=== PATIENT | female | born 1950 | race Caucasian/White ===

== ENCOUNTER 2016-05-14 07:01 | Inpatient (IN) | payer OTHER ==
[2016-05-14] VITALS (7 sets, daily range): BP systolic 131–161; BP diastolic 60–80
[~2016-05-14] VITALS: Ht 160 cm; Wt 93.0 kg
--- NOTE | ~2016-05-14 | O ---
[place], [place] OPERATIVE NOTE NAME: ANGELA HARRIS UNIT #: [id number] ROOM: 419 DOCTOR: CHELSEA FRANCIS MD BIRTHDATE: [birth year] DOS: 05/16/2016 GASTROENDOSCOPIC REPORT HISTORY OF PRESENT ILLNESS: The patient is a 66-year-old who has presented with chief complaint of epigastric abdominal pain, dyspepsia. Undergoing investigation. Consultation has been already dictated. Ultrasound of the liver has been reviewed. Hepatic , mild nodular contour suggesting of underlying cirrhosis, possible LEMA. CT scan of the abdomen also confirmatory of the above. Main organs are otherwise normal. Gallbladder is absent. PROCEDURE: Today's procedure part of investigation is panendoscopy plus biopsy. PREMEDICATION: Versed and Diprivan. SCOPE: Olympus forward-viewing gastroscope Q10 video. REPORT: After putting the patient in the left lateral position and application of lubricant to the scope, the scope was introduced. Thereafter, under direct visualization, I advanced through the length of the esophagus without difficulty. Esophagus, cervical and thoracic distally carefully examined. Gastric pouch was entered. Gastritis of mild degree was noticed. Antrum was biopsied. Duodenal bulb, second and third part patent, no pathology identified. GI reflection of the scope reveals cardia to be benign. Air was suctioned out. The patient extubated, tolerated procedure well. IMPRESSION: Gastritis. PLAN AND DISCUSSION: Omeprazole 20 mg 1 q. day would suffice. This patient most likely has suffered from viral gastroenteritis. Soft diet is going to be given and if stable, she is going to be followed as outpatient. Of notice is patient has been incidentally was found to have nodular liver, which is consistent with cirrhosis. Thank you very much indeed. Sincerely yours. [place], [place] OPERATIVE NOTE NAME: ANGELA HARRIS Jeovany UNIT #: [id number] ROOM: 419 DOCTOR: CHELSEA FRANCIS MD BIRTHDATE: [birth year] CHELSEA FRANCIS MD CM:OPRECORD:OPERATIVE NOTE 1122 1225 RUCHI BIRCH CCD MD CHELSEA FRANCIS MD 05/16/16 1225 interface
--- NOTE | ~2016-05-14 | CON ---
[place], [place] REPORT OF CONSULTATION [id number] UN[facility] #: [id number] ROOM: 419 DOCTOR: TITO GONZALESCHELSEA BIRTHDATE: [birth year] DOS: HISTORY OF PRESENT ILLNESS: This patient has presented with chief complaint of nausea, vomiting, epigastric distress, undergoing investigation. The patient has been hospitalized at this time. At the time of admission, her white blood cell was 7, H and H of 12 and 36. Lactic acid was 2.6. INR was 1.0. Comprehensive metabolic panel: BUN and creatinine normal. Electrolytes were balanced. Liver function test nearly normal. Myoglobin was 103. Lipase, alkaline phosphatase, C-reactive protein all within normal limits. Chest x-ray, no acute process. CT scan of the abdomen and pelvis was utilized. No acute process somewhat nodular contours of the liver suggest possible cirrhosis. Hemoglobin A1c was 8.6. H and H dropped to 10 and 31. Her comprehensive metabolic panel was readdressed with no acute changes otherwise. PAST MEDICAL HISTORY: Associated with nausea, vomiting, hypertension, obesity, gastritis, anxiety, abdominal distress, UTI. PAST SURGICAL HISTORY: Hysterectomy, appendectomy, cholecystectomy, basal cell resection, cardiac catheterization. SOCIAL HISTORY: Nonsmoker, nonalcohol consumer. FAMILY HISTORY: Noncontributory. ALLERGIES: CODEINE AND LEVOFLOXACIN. MEDICATIONS: List has been reviewed. REVIEW OF SYSTEMS: HEENT: Denies double vision, blurred vision. RESPIRATORY: Denies shortness of breath. CARDIOVASCULAR: Denies chest pain. DIGESTIVE SYSTEM: Nausea, vomiting. An episode of diarrhea. PHYSICAL EXAMINATION: VITAL SIGNS: Stable not acutely toxic. HEENT: Head: Normocephalic, nontraumatic. Mouth and buccal mucosa benign. NECK: Supple, no thyromegaly. CHEST: Symmetric anatomy, equal expansion. No wheeze, no rhonchi. HEART: Normal sinus rhythm, no gallop, no murmur. ABDOMEN: Obese, large, soft. No hepato-organomegaly. Bowel sounds present. EXTREMITIES: No cyanosis, no pedal edema. NEUROLOGIC: Alert, oriented to time, place and person. LABORATORY DATA: Reviewed. Records reviewed. Data reviewed. IMPRESSION: Nausea, vomiting associated with diarrhea, ruling out gastroenteritis. 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 PLAN AND DISCUSSION: We are going to organize an EGD. CHELSEA FRANCIS MD CM:CONSTR:REPORT OF CONSULTATION 0951 05/16/16 1324 interface
[~2016-05-14 07:01] MED LIST: 'TENORMIN50 MG PO; ACTOS30 MG PO; AMLODIPINE BESYL5 MG PO; ATARAX,VISTARIL50 MG PO; ATENOLOL25 MG PO; ATIVAN1 MG PO; BACTRIM DS 8001 TA1 PO; BACTRIM DS 8001 TAB PO; CARAFATE1 G1 PO; CARAFATE1 GM PO; CEFTIN250 MG PO; CEFUROXIME AXE250 MG PO; CELEXA10 MG PO; CELEXA40 MG PO; CLEOCIN150 MG PO; CLONAZEPAM2 MG PO; CORBAN MAGNESI400 MG PO; CRESTOR10 MG PO; DIABETA5 MG PO; EFFEXOR50 MG PO; FETZIMA PO; FIORICET 325 MG1 TAB PO; Fetzima PO; HUMALOG100 U/ML SC; INSULIN PUMP; INSULIN-HUMA100 U/ML SC; JANUVIA100 MG PO; K-DUR20 MEQ PO; KLONOPIN1 MG PO; KLONOPIN2 M1 PO; KLONOPIN2 MG PO; LAMICTAL100 MG PO; LAMICTAL25 MG; LANTUS SOLOS100 U/M1 SC; LANTUS100 U/ML SC; LASIX40 MG PO; LATU60TA PO; LEVAQUIN750 M1 PO; LEVOTHYROXIN0.112 MG PO; LISINOPRIL10 MG PO; MAALOX UD SUSP.30 ML PO; MACROBID100 M1 PO; METFORMIN1000 MG PO; METFORMIN500 MG PO; MIRALAX POWDER17 GM PO; MONISTAT 72% VG; NEURONTIN100 MG PO; NIFEREX PO; NORCO 325 MG-51 TAB PO; NOVOLIN 701 UNIT/0.0 SC; NOVOLIN R100 U/ML IJ; NOVOLOG 70/30 M10 ML SC; NOVOLOG1 UNIT/0.0; OYSTER SHELL CA1 T17 PO; PERCOCET 325 MG1 TA2 PO; PRAVACHOL10 MG PO; PRAVACHOL40 MG PO; PROTONIX40 MG PO; PYRIDIUM200 MG PO; REGLAN10 MG PO; RESTORIL15 MG PO; SEROQUEL100 MG PO; SEROQUEL400 M1 PO; SEROQUEL400 MG PO; SYNTHROID0.137 MG PO; TENORETIC 50 501 TAB PO; TENORMIN25 MG PO; TORADOL10 MG PO; TRAD5TAB1 PO; TRAMADOL HCL50 MG PO; VASOTEC2.5 MG PO; VASOTEC5 MG PO; VENLAFAXINE HYD50 MG PO; VICTOZA 3-PAK6 MG/ML SC; VISTARIL50 MG PO; VITAMIN D31000 IU PO; XANAX0.5 MG PO; XANAX1 MG PO; ZANAFLEX4 M1 PO; ZANAFLEX4 MG PO; ZANTAC150 MG PO; ZOCOR10 MG PO; ZOFRAN ODT4 MG SL
[2016-05-14 07:47] LABS: BASO % 0.5 % (0.0-1.0); EOS # 0.3 10*3/uL (0.0-0.4); EOS % 3.7 % (1.0-4.0); HEMATOCRIT 36.6 % (37.0-47.0); HEMOGLOBIN 12.1 g/dl (12.0-16.0); LYMPH # 1.9 10*3/uL (1.3-4.4); LYMPH % 25.9 % (27.0-41.0); MEAN CORPUSCULAR HGB 26.8 pg (27.0-31.0); MEAN CORPUSCULAR HGB CONC 33.1 g/dl (33.0-37.0); MONO # 0.6 10*3/uL (0.1-1.0); MONO % 8.2 % (3.0-9.0); NEUT # 4.5 10*3/uL (2.3-7.9); NEUT % 61.3 % (47.0-73.0); PLATELET COUNT AUTOMATED 172 10*3/uL (130-400); RED BLOOD COUNT 4.52 10*6/uL (4.10-5.10); RED CELL DISTRI WIDTH 13.9 % (0-14.5); WHITE BLOOD COUNT 7.3 10*3/uL (4.8-10.8)
[2016-05-14 07:56] LABS: INTERNATIONAL NORM RATIO 1.1 (2.0-3.5); PROTHROMBIN TIME 11.9 SECONDS (9.0-12.4)
[2016-05-14 08:05] LABS: ALKALINE PHOSPHATASE 94 U/L (45-117); BILIRUBIN, TOTAL 0.4 mg/dl (0.2-1.0); BUN 18 mg/dl (7-24); CARBON DIOXIDE 31 mmol/L (21-32); CHLORIDE 99 mmol/L (98-107); CKMB 2.1 ng/ml (0.5-3.6); CPK 137 U/L (26-192); EST GLOM FILT AFRICAN AMERICAN > 60 ml/min; GLUCOSE 198 mg/dL (65-99); MAGNESIUM 1.8 mg/dL (1.5-2.1); POTASSIUM 4.7 mmol/L (3.5-5.1); SGOT/AST 46 IU/L (3-35); SODIUM 138 mmol/L (136-145); TOTAL PROTEIN 8.1 gm/dL (6.4-8.2)
[2016-05-14 08:07] LABS: C-REACTIVE PROTEIN < 0.29 MG/DL (0-0.3); TROPONIN I < 0.015 ng/ml (<0.045)
[2016-05-14 08:09] LABS: SGPT/ALT 42 U/L (12-78)
[2016-05-14 09:44] LABS: LA>2 REFLEX 2 HR DRAW NOW
[2016-05-14 10:05] LABS: BILIRUBIN NEGATIVE (NEGATIVE); BLOOD NEGATIVE (NEGATIVE); CLARITY SL CLOUDY (CLEAR); COLOR YELLOW (YELLOW); GLUCOSE NEGATIVE (NEGATIVE); KETONE NEGATIVE (NEGATIVE); LEUKO ESTERASE NEGATIVE (NEGATIVE); NITRITE NEGATIVE (NEGATIVE); PH 5.5 (5.0-9.0); PROTEIN NEGATIVE (NEGATIVE); UROBILINOGEN 0.2 E.U./dl (0.2-1.0)
[2016-05-14 10:12] LABS: LA>2 RFLX FOLLOW UP AT 2 HRS 2.5 mmol/L (0.4-2.0)
[2016-05-14 10:36] LABS: BACTERIA TRACE
[2016-05-14 10:37] LABS: URINE REFLEX COMMENT NO (NO)
[2016-05-14 12:00] LABS: LA>2 REFLEX 4 HR DRAW NOW
[2016-05-15] VITALS: BP 139/58
[2016-05-15 06:43] LABS: BASO % 0.7 % (0.0-1.0); EOS # 0.2 10*3/uL (0.0-0.4); EOS % 4.7 % (1.0-4.0); HEMATOCRIT 31.5 % (37.0-47.0); LYMPH # 1.8 10*3/uL (1.3-4.4); LYMPH % 40.8 % (27.0-41.0); MEAN CELL VOLUME 82.9 fl (81.0-99.0); MEAN CORPUSCULAR HGB 26.3 pg (27.0-31.0); MEAN CORPUSCULAR HGB CONC 31.7 g/dl (33.0-37.0); MEAN PLATELET VOLUME 9.8 fl (9.6-12.3); MONO # 0.4 10*3/uL (0.1-1.0); MONO % 7.8 % (3.0-9.0); NEUT % 45.8 % (47.0-73.0); WHITE BLOOD COUNT 4.5 10*3/uL (4.8-10.8)
[2016-05-15 06:58] LABS: HEMOGLOBIN A1c 8.6 % (4.8-5.6)
[2016-05-15 07:01] LABS: ALBUMIN 3.4 gm/dl (3.1-4.5); ALKALINE PHOSPHATASE 84 U/L (45-117); BILIRUBIN, TOTAL 0.2 mg/dl (0.2-1.0); BUN 12 mg/dl (7-24); CARBON DIOXIDE 30 mmol/L (21-32); CHLORIDE 107 mmol/L (98-107); EST GLOM FILT AFRICAN AMERICAN > 60 ml/min; GLUCOSE 142 mg/dL (65-99); MAGNESIUM 1.7 mg/dL (1.5-2.1); PHOSPHOROUS 2.1 mg/dL (2.5-4.9); POTASSIUM 4.3 mmol/L (3.5-5.1); SGOT/AST 51 IU/L (3-35); SGPT/ALT 45 U/L (12-78); SODIUM 142 mmol/L (136-145); TOTAL PROTEIN 6.7 gm/dL (6.4-8.2)
[2016-05-15 07:08] LABS: PLATELET COUNT AUTOMATED 113 10*3/uL (130-400)
[2016-05-15 07:12] LABS: FOLIC ACID 7.66 ng/mL (>5.38); VITAMIN D, 25-HYDROXY 18.9 ng/mL (30-100)
[2016-05-15 07:39] LABS: CHOLESTEROL 74 mg/dL (<200)
[2016-05-15 07:40] LABS: HDL CHOLESTEROL 35 mg/dl (40-60); LDL CHOLESTEROL 4 mg/dL (9-159); TRIGLYCERIDES 177 mg/dl (<150); VLDL CHOLESTEROL 35 mg/dL (6-40)
[2016-05-15 08:00] VITALS: BP 96/66
[2016-05-15 12:00] VITALS: BP 110/55
[2016-05-15 16:00] VITALS: BP 127/81
[2016-05-15 20:00] VITALS: BP 153/84
[2016-05-16] VITALS (9 sets, daily range): BP systolic 106–161; BP diastolic 49–72
[2016-05-16 05:56] LABS: BASO % 0.8 % (0.0-1.0); EOS # 0.2 10*3/uL (0.0-0.4); HEMATOCRIT 28.9 % (37.0-47.0); HEMOGLOBIN 9.5 g/dl (12.0-16.0); LYMPH # 1.7 10*3/uL (1.3-4.4); LYMPH % 41.7 % (27.0-41.0); MEAN CORPUSCULAR HGB 26.6 pg (27.0-31.0); MEAN CORPUSCULAR HGB CONC 32.9 g/dl (33.0-37.0); MEAN PLATELET VOLUME 10.4 fl (9.6-12.3); MONO # 0.4 10*3/uL (0.1-1.0); MONO % 9.3 % (3.0-9.0); NEUT # 1.7 10*3/uL (2.3-7.9); NEUT % 42.7 % (47.0-73.0); PLATELET COUNT AUTOMATED 103 10*3/uL (130-400); RED BLOOD COUNT 3.57 10*6/uL (4.10-5.10)
[2016-05-16 05:57] LABS: ALKALINE PHOSPHATASE 72 U/L (45-117); BILIRUBIN, TOTAL 0.2 mg/dl (0.2-1.0); BUN 7 mg/dl (7-24); CARBON DIOXIDE 29 mmol/L (21-32); CHLORIDE 109 mmol/L (98-107); EST GLOM FILT AFRICAN AMERICAN > 60 ml/min; GLUCOSE 144 mg/dL (65-99); MAGNESIUM 1.7 mg/dL (1.5-2.1); PHOSPHOROUS 1.6 mg/dL (2.5-4.9); POTASSIUM 4.1 mmol/L (3.5-5.1); SGOT/AST 43 IU/L (3-35); SGPT/ALT 40 U/L (12-78); SODIUM 144 mmol/L (136-145)
[2016-05-17] VITALS: BP 147/64
[2016-05-17 08:00] VITALS: BP 153/58
[2016-05-17] MEDS ORDERED: OMEPRAZOLE D/R20 MG PO (11:16)
[2016-05-17] MEDS ORDERED: SEROQUEL400 M1 PO (11:16)
[2016-05-17] MEDS ORDERED: KLONOPIN2 M1 PO (11:16)
[2016-05-17] MEDS ORDERED: SEROQUEL100 MG PO (11:16)
== END 2016-05-17 13:15 | disposition home health service (06) | DRG 392 ==
LOC: ED 07:01 → EDHOLD 11:58 → 4E 11:58 → EDHOLD 12:13 → 4E 12:18
PROVIDERS: Emergency Medicine; Internal Medicine
PROC: 0DB68ZX Excision of Stomach, Via Natural or Artificial Opening Endoscopic, Diagnostic (ICD-10-PCS; principal; 2016-05-16)
DX: K29.70 Gastritis, unspecified, without bleeding (principal); E88.81 Metabolic syndrome and other insulin resistance; E44.0 Moderate protein-calorie malnutrition; R13.10 Dysphagia, unspecified; E83.39 Other disorders of phosphorus metabolism; K74.60 Unspecified cirrhosis of liver; E11.65 Type 2 diabetes mellitus with hyperglycemia; K52.9 Noninfective gastroenteritis and colitis, unspecified; I10 Essential (primary) hypertension; E86.0 Dehydration; E66.9 Obesity, unspecified; K76.0 Fatty (change of) liver, not elsewhere classified; E83.52 Hypercalcemia; F41.9 Anxiety disorder, unspecified; Z79.4 Long term (current) use of insulin; Z87.440 Personal history of urinary (tract) infections; Z90.710 Acquired absence of both cervix and uterus; Z90.49 Acquired absence of other specified parts of digestive tract; Z68.36 Body mass index [BMI] 36.0-36.9, adult; Z83.3 Family history of diabetes mellitus; Z80.1 Family history of malignant neoplasm of trachea, bronchus and lung; Z88.6 Allergy status to analgesic agent; Z88.1 Allergy status to other antibiotic agents; Z79.84 Long term (current) use of oral hypoglycemic drugs; Z79.899 Other long term (current) drug therapy

== ENCOUNTER 2016-08-20 10:59 | Inpatient (IN) | payer OTHER ==
[2016-08-20] VITALS (9 sets, daily range): BP systolic 152–195; BP diastolic 70–115
[~2016-08-20] VITALS: Ht 167.6 cm; Wt 96.4 kg
[~2016-08-20 10:59] MED LIST changes: +OMEPRAZOLE D/R20 MG PO
[2016-08-20 11:46] LABS: BASO # 0.1 10*3/uL (0.0-0.1); BASO % 0.7 % (0.0-1.0); EOS # 0.2 10*3/uL (0.0-0.4); EOS % 2.8 % (1.0-4.0); HEMATOCRIT 38.7 % (37.0-47.0); LYMPH # 1.4 10*3/uL (1.3-4.4); LYMPH % 20.4 % (27.0-41.0); MEAN CELL VOLUME 80.3 fl (81.0-99.0); MEAN CORPUSCULAR HGB CONC 33.6 g/dl (33.0-37.0); MEAN PLATELET VOLUME 10.3 fl (9.6-12.3); MONO # 0.6 10*3/uL (0.1-1.0); MONO % 9.3 % (3.0-9.0); NEUT # 4.5 10*3/uL (2.3-7.9); NEUT % 66.2 % (47.0-73.0); PLATELET COUNT AUTOMATED 195 10*3/uL (130-400); RED BLOOD COUNT 4.82 10*6/uL (4.10-5.10); RED CELL DISTRI WIDTH 14.6 % (0-14.5); WHITE BLOOD COUNT 6.8 10*3/uL (4.8-10.8)
[2016-08-20 11:53] LABS: PROTHROMBIN TIME 11.1 SECONDS (9.0-12.4)
[2016-08-20 12:00] LABS: ALBUMIN 4.3 gm/dl (3.1-4.5); BILIRUBIN, TOTAL 0.5 mg/dl (0.2-1.0); C-REACTIVE PROTEIN 1.46 MG/DL (0-0.3); CKMB 2.6 ng/ml (0.5-3.6); MAGNESIUM 1.9 mg/dL (1.5-2.1); POTASSIUM 4.8 mmol/L (3.5-5.1); TOTAL PROTEIN 8.7 gm/dL (6.4-8.2)
[2016-08-20 12:02] LABS: TROPONIN I 0.485 ng/ml (<0.045)
[2016-08-20 12:31] LABS: BILIRUBIN NEGATIVE (NEGATIVE); BLOOD TRACE-INTACT (NEGATIVE); CLARITY CLEAR (CLEAR); COLOR YELLOW (YELLOW); GLUCOSE 3+ (NEGATIVE); KETONE 2+ (NEGATIVE); LEUKO ESTERASE NEGATIVE (NEGATIVE); NITRITE NEGATIVE (NEGATIVE); PH 5.5 (5.0-9.0); PROTEIN 1+ (NEGATIVE); UROBILINOGEN 0.2 E.U./dl (0.2-1.0)
[2016-08-20 12:47] LABS: BACTERIA 1+; URINE REFLEX COMMENT YES (NO)
[2016-08-20 12:48] LABS: MUCOUS TRACE
[2016-08-20 13:42] LABS: LA>2 REFLEX 2 HR DRAW NOW
[2016-08-20 14:03] LABS: LA>2 RFLX FOLLOW UP AT 2 HRS 2.9 mmol/L (0.4-2.0)
[2016-08-20 15:57] LABS: LA>2 REFLEX 4 HR DRAW NOW
[2016-08-21] VITALS: BP 147/78
[2016-08-21 04:00] VITALS: BP 145/64
[2016-08-21 06:46] LABS: BASO % 0.5 % (0.0-1.0); EOS # 0.4 10*3/uL (0.0-0.4); EOS % 6.7 % (1.0-4.0); HEMATOCRIT 33.6 % (37.0-47.0); LYMPH # 1.5 10*3/uL (1.3-4.4); LYMPH % 27.2 % (27.0-41.0); MEAN CORPUSCULAR HGB 27.2 pg (27.0-31.0); MEAN CORPUSCULAR HGB CONC 32.7 g/dl (33.0-37.0); MONO # 0.5 10*3/uL (0.1-1.0); MONO % 9.6 % (3.0-9.0); NEUT # 3.1 10*3/uL (2.3-7.9); NEUT % 55.3 % (47.0-73.0); PLATELET COUNT AUTOMATED 159 10*3/uL (130-400); RED BLOOD COUNT 4.05 10*6/uL (4.10-5.10); WHITE BLOOD COUNT 5.5 10*3/uL (4.8-10.8)
[2016-08-21 07:00] LABS: ALBUMIN 3.5 gm/dl (3.1-4.5); ALKALINE PHOSPHATASE 97 U/L (45-117); BILIRUBIN, TOTAL 0.4 mg/dl (0.2-1.0); BUN 15 mg/dl (7-24); CARBON DIOXIDE 28 mmol/L (21-32); CHLORIDE 102 mmol/L (98-107); EST GLOM FILT AFRICAN AMERICAN > 60 ml/min; GLUCOSE 325 mg/dL (65-99); MAGNESIUM 1.8 mg/dL (1.5-2.1); PHOSPHOROUS 1.9 mg/dL (2.5-4.9); POTASSIUM 4.1 mmol/L (3.5-5.1); SGOT/AST 34 IU/L (3-35); SGPT/ALT 38 U/L (12-78); SODIUM 138 mmol/L (136-145); TOTAL PROTEIN 7.4 gm/dL (6.4-8.2)
[2016-08-21 08:00] VITALS: BP 160/88
[2016-08-21 12:00] VITALS: BP 162/82
[2016-08-21] MEDS ORDERED: VISTARIL50 MG PO (14:17)
[2016-08-21] MEDS ORDERED: KLONOPIN2 M1 PO (14:18)
[2016-08-21] MEDS ORDERED: NOVOLOG MI100 UNIT/2 SQ ×2 (14:19→14:20)
[2016-08-21 14:23] LABS: LA>2 REFLEX 2 HR DRAW NOW
[2016-08-21 14:53] LABS: LA>2 RFLX FOLLOW UP AT 2 HRS 2.7 mmol/L (0.4-2.0)
[2016-08-21 16:00] VITALS: BP 164/78
[2016-08-21 16:45] LABS: LA>2 REFLEX 4 HR DRAW NOW
[2016-08-21 20:00] VITALS: BP 145/74
[2016-08-22] VITALS: BP 122/68
[2016-08-22 06:25] LABS: BASO % 0.4 % (0.0-1.0); EOS # 0.4 10*3/uL (0.0-0.4); EOS % 8.8 % (1.0-4.0); HEMATOCRIT 28.9 % (37.0-47.0); HEMOGLOBIN 9.4 g/dl (12.0-16.0); LYMPH # 1.6 10*3/uL (1.3-4.4); LYMPH % 34.8 % (27.0-41.0); MEAN CELL VOLUME 83.5 fl (81.0-99.0); MEAN CORPUSCULAR HGB 27.2 pg (27.0-31.0); MEAN CORPUSCULAR HGB CONC 32.5 g/dl (33.0-37.0); MEAN PLATELET VOLUME 10.2 fl (9.6-12.3); MONO # 0.5 10*3/uL (0.1-1.0); MONO % 10.1 % (3.0-9.0); NEUT # 2.1 10*3/uL (2.3-7.9); NEUT % 45.5 % (47.0-73.0); PLATELET COUNT AUTOMATED 130 10*3/uL (130-400); RED BLOOD COUNT 3.46 10*6/uL (4.10-5.10); WHITE BLOOD COUNT 4.6 10*3/uL (4.8-10.8)
[2016-08-22 07:01] LABS: ALBUMIN 2.9 gm/dl (3.1-4.5); ALKALINE PHOSPHATASE 83 U/L (45-117); BILIRUBIN, TOTAL 0.3 mg/dl (0.2-1.0); BUN 11 mg/dl (7-24); CARBON DIOXIDE 29 mmol/L (21-32); CHLORIDE 103 mmol/L (98-107); EST GLOM FILT AFRICAN AMERICAN > 60 ml/min; GLUCOSE 217 mg/dL (65-99); POTASSIUM 3.9 mmol/L (3.5-5.1); SGOT/AST 26 IU/L (3-35); SGPT/ALT 36 U/L (12-78); SODIUM 139 mmol/L (136-145); TOTAL PROTEIN 6.3 gm/dL (6.4-8.2)
[2016-08-22 08:00] VITALS: BP 142/54
[2016-08-22] MEDS ORDERED: LEVEMIR10 ML SC (11:56)
[2016-08-22 12:00] VITALS: BP 138/65
[2016-08-22 12:32] LABS: LA>2 REFLEX 2 HR DRAW NOW
[2016-08-22 13:15] LABS: LA>2 RFLX FOLLOW UP AT 2 HRS 2.8 mmol/L (0.4-2.0)
[2016-08-22 15:09] LABS: LA>2 REFLEX 4 HR DRAW NOW
== END 2016-08-22 14:10 | disposition home or self-care (01) | DRG 871 ==
LOC: ED 10:59 → 5E 13:30 → EDHOLD 13:30 → 5E 13:42
PROVIDERS: Emergency Medicine; Family Medicine; Hospitalist; Internal Medicine Nephrology
DX: A41.9 Sepsis, unspecified organism (principal); N17.0 Acute kidney failure with tubular necrosis; G93.41 Metabolic encephalopathy; I16.1 Hypertensive emergency; R65.20 Severe sepsis without septic shock; E11.65 Type 2 diabetes mellitus with hyperglycemia; Z79.4 Long term (current) use of insulin; K74.60 Unspecified cirrhosis of liver; K76.0 Fatty (change of) liver, not elsewhere classified; K52.9 Noninfective gastroenteritis and colitis, unspecified; G24.01 Drug induced subacute dyskinesia; E66.9 Obesity, unspecified; Z85.828 Personal history of other malignant neoplasm of skin; F41.1 Generalized anxiety disorder; F32.9 Major depressive disorder, single episode, unspecified; Z90.49 Acquired absence of other specified parts of digestive tract; Z80.1 Family history of malignant neoplasm of trachea, bronchus and lung; Z68.39 Body mass index [BMI] 39.0-39.9, adult; Z88.5 Allergy status to narcotic agent; Z88.1 Allergy status to other antibiotic agents; R82.4 Acetonuria; D72.810 Lymphocytopenia; I10 Essential (primary) hypertension; Z83.3 Family history of diabetes mellitus

== ENCOUNTER 2016-08-30 08:37 | Inpatient (IN) | payer OTHER ==
[~2016-08-30] VITALS: Ht 165.1 cm; Wt 94.4 kg
--- NOTE | ~2016-08-30 | CON ---
[place], [place] REPORT OF CONSULTATION NAME: ANGELA HARRIS UNIT #: [id number] ROOM: [place] [address] DOCTOR: OLIVERIO BRAR MD BIRTHDATE: [birth year] DOS: 08/31/2016 PSYCHIATRIC CONSULT. CHIEF COMPLAINT: The patient was nonverbal. HISTORY OF PRESENT ILLNESS: This is a 66-year-old female who was admitted to [facility] due to nausea, vomiting, diarrhea and chills. The patient has been now running a temperature of over 104 and has been very somnolent. When I attempted to interview her, she was very sedate and somnolent and not able to engage readily in conversation. PAST MEDICAL HISTORY: Suggest a history of major depression, obesity, insulin-dependent diabetes, generalized anxiety disorder, hypertension, basal cell carcinoma. MENTAL STATUS: Limited due to her somnolent state. There was no agitation or aggression. No mood lability, no overt psychosis noted. DIAGNOSIS: Bipolar type 2. PLAN: She is on Seroquel 500 mg at bedtime. I will go ahead and lower this to 100 mg at bedtime. She is also on Klonopin 2 mg at bedtime. I will lower this to 1 mg at bedtime. These doses can be adjusted back up as she becomes more alert and oriented. There are other alternatives to the Seroquel, for example, Latuda will give you sedation without the somnolence that Seroquel often causes. Should she require further adjustment, please re-notify me and I will reevaluate her later in her hospital stay. OLIVERIO BRAR MD CM:CONSTR:REPORT OF CONSULTATION 0918 08/31/16 2330 interface
[~2016-08-30 08:37] MED LIST changes: +LEVEMIR10 ML SC; +NOVOLOG MI100 UNIT/2 SQ
[2016-08-30 08:54] VITALS: BP 181/80
[2016-08-30 09:09] LABS: BASO % 0.6 % (0.0-1.0); EOS # 0.3 10*3/uL (0.0-0.4); EOS % 6.1 % (1.0-4.0); HEMATOCRIT 37.9 % (37.0-47.0); HEMOGLOBIN 12.3 g/dl (12.0-16.0); LYMPH # 1.4 10*3/uL (1.3-4.4); LYMPH % 28.5 % (27.0-41.0); MEAN CELL VOLUME 81.5 fl (81.0-99.0); MEAN CORPUSCULAR HGB 26.5 pg (27.0-31.0); MEAN CORPUSCULAR HGB CONC 32.5 g/dl (33.0-37.0); MEAN PLATELET VOLUME 9.9 fl (9.6-12.3); MONO # 0.4 10*3/uL (0.1-1.0); MONO % 8.5 % (3.0-9.0); NEUT # 2.8 10*3/uL (2.3-7.9); NEUT % 55.7 % (47.0-73.0); PLATELET COUNT AUTOMATED 173 10*3/uL (130-400); RED BLOOD COUNT 4.65 10*6/uL (4.10-5.10); RED CELL DISTRI WIDTH 15.2 % (0-14.5); WHITE BLOOD COUNT 4.9 10*3/uL (4.8-10.8)
[2016-08-30 09:23] LABS: ALBUMIN 3.7 gm/dl (3.1-4.5); BILIRUBIN, TOTAL 0.6 mg/dl (0.2-1.0); POTASSIUM 4.5 mmol/L (3.5-5.1); TOTAL PROTEIN 7.7 gm/dL (6.4-8.2)
[2016-08-30 10:00] VITALS: BP 137/80
[2016-08-30 10:35] LABS: BILIRUBIN NEGATIVE (NEGATIVE); BLOOD NEGATIVE (NEGATIVE); CLARITY SL CLOUDY (CLEAR); COLOR YELLOW (YELLOW); GLUCOSE 3+ (NEGATIVE); KETONE TRACE (NEGATIVE); LEUKO ESTERASE NEGATIVE (NEGATIVE); NITRITE NEGATIVE (NEGATIVE); PH 5.5 (5.0-9.0); PROTEIN 1+ (NEGATIVE); UROBILINOGEN 0.2 E.U./dl (0.2-1.0)
[2016-08-30 10:49] LABS: BACTERIA 1+; FINE GRANULAR CAST 20-30; HYALINE CAST 15-20; MUCOUS 1+; RED BLOOD CELL CAST 0-2
[2016-08-30 11:44] VITALS: BP 185/71
[2016-08-30 14:42] VITALS: BP 157/74
[2016-08-30] MEDS ORDERED: METFORMIN HCL1000 MG PO (15:41)
[2016-08-30] MEDS ORDERED: FOSAMAX70 M1 PO (15:42)
[2016-08-30] MEDS ORDERED: VISTARIL50 MG PO (15:42)
[2016-08-30 16:00] VITALS: BP 156/88
[2016-08-30 20:00] VITALS: BP 144/58
[2016-08-31] VITALS: BP 143/60; BP 82/35
[2016-08-31 00:39] LABS: ABG BASE EXCESS 0.7 mmol/L (-2.0-2.0); ABG CO2 CONTENT 27.3 mmol/L (23-27); ABG HCO3 25.8 mmol/l (22-26); ABG TEMPERATURE 97.8 F (98.0-99.0); ARTERIAL BLOOD GAS PH 7.37 (7.35-7.45); ARTERIAL BLOOD GAS PO2 86.4 mmHg (80-90)
[2016-08-31 01:00] VITALS: BP 152/82
[2016-08-31 03:04] LABS: BASO % 0.4 % (0.0-1.0); EOS # 0.2 10*3/uL (0.0-0.4); EOS % 4.1 % (1.0-4.0); HEMOGLOBIN 10.8 g/dl (12.0-16.0); LYMPH # 1.6 10*3/uL (1.3-4.4); LYMPH % 31.3 % (27.0-41.0); MEAN CELL VOLUME 81.9 fl (81.0-99.0); MEAN CORPUSCULAR HGB 26.8 pg (27.0-31.0); MEAN CORPUSCULAR HGB CONC 32.7 g/dl (33.0-37.0); MEAN PLATELET VOLUME 9.8 fl (9.6-12.3); MONO # 0.6 10*3/uL (0.1-1.0); MONO % 10.6 % (3.0-9.0); NEUT # 2.8 10*3/uL (2.3-7.9); NEUT % 53.4 % (47.0-73.0); PLATELET COUNT AUTOMATED 144 10*3/uL (130-400); RED BLOOD COUNT 4.03 10*6/uL (4.10-5.10); RED CELL DISTRI WIDTH 15.1 % (0-14.5); WHITE BLOOD COUNT 5.2 10*3/uL (4.8-10.8)
[2016-08-31 03:23] LABS: ALBUMIN 3.4 gm/dl (3.1-4.5); ALKALINE PHOSPHATASE 84 U/L (45-117); BUN 11 mg/dl (7-24); CARBON DIOXIDE 28 mmol/L (21-32); CHLORIDE 103 mmol/L (98-107); EST GLOM FILT AFRICAN AMERICAN > 60 ml/min; GLUCOSE 95 mg/dL (65-99); MAGNESIUM 1.3 mg/dL (1.5-2.1); PHOSPHOROUS 1.7 mg/dL (2.5-4.9); POTASSIUM 4.1 mmol/L (3.5-5.1); SGOT/AST 41 IU/L (3-35); SGPT/ALT 42 U/L (12-78); SODIUM 139 mmol/L (136-145)
[2016-08-31 03:25] LABS: BILIRUBIN, TOTAL 0.3 mg/dl (0.2-1.0)
[2016-08-31 04:00] VITALS: BP 187/85
[2016-08-31 08:00] VITALS: BP 160/89
[2016-08-31 11:40] VITALS: BP 191/86
[2016-08-31 13:00] VITALS: BP 236/96
[2016-08-31 13:16] LABS: URINE AMPHETAMINES < 1000 (1000ng/ml); URINE BARBITURATES < 200 (200ng/ml); URINE COCAINE < 300 (300ng/ml)
== END 2016-08-31 13:34 | disposition short-term general hospital (02) | DRG 871 ==
LOC: ED 08:37 → EDHOLD 11:40 → 5E 11:47 → ICCU 08-31 00:45
PROVIDERS: Emergency Medicine; Internal Medicine; Internal Medicine Hospice and Palliative Medicine; Internal Medicine Infectious Disease
DX: A41.9 Sepsis, unspecified organism (principal); N17.0 Acute kidney failure with tubular necrosis; G92 Toxic encephalopathy; G03.9 Meningitis, unspecified; E87.1 Hypo-osmolality and hyponatremia; F31.81 Bipolar II disorder; K76.0 Fatty (change of) liver, not elsewhere classified; F41.1 Generalized anxiety disorder; I10 Essential (primary) hypertension; C44.91 Basal cell carcinoma of skin, unspecified; E66.9 Obesity, unspecified; R19.7 Diarrhea, unspecified; E11.65 Type 2 diabetes mellitus with hyperglycemia; E83.52 Hypercalcemia; Z91.14 Patient's other noncompliance with medication regimen; Z88.1 Allergy status to other antibiotic agents; Z88.5 Allergy status to narcotic agent; Z79.4 Long term (current) use of insulin; Z68.34 Body mass index [BMI] 34.0-34.9, adult; Z79.899 Other long term (current) drug therapy; Z90.710 Acquired absence of both cervix and uterus; Z90.49 Acquired absence of other specified parts of digestive tract; Z82.49 Family history of ischemic heart disease and other diseases of the circulatory system; Z83.3 Family history of diabetes mellitus; Z80.1 Family history of malignant neoplasm of trachea, bronchus and lung; Z79.84 Long term (current) use of oral hypoglycemic drugs

== ENCOUNTER 2016-09-21 14:33 | Inpatient (IN) | payer OTHER ==
[~2016-09-21] VITALS: Ht 165.1 cm; Wt 95.3 kg
--- NOTE | ~2016-09-21 | CON ---
[place], [place] REPORT OF CONSULTATION NAME[id number] UNIT #: [id number] ROOM: 408 DOCTOR: TITO GONZALESCHELSEA BIRTHDATE: [birth year] DOS: 09/21/2016 HISTORY OF PRESENT ILLNESS: A 66-year-old who has presented with guaiac positivity and anemia to the Emergency Room. The patient is known to our service because of the past endoscopies with findings of gastritis and episodes of nausea, vomiting, diarrhea and has been under investigation periodically for a variety of complaints. PAST MEDICAL HISTORY: Associated with LEMA (nonalcoholic fatty steatosis) of the liver, obesity, unsteady gait, anxiety, hypertension, basal cell CA of skin, cirrhosis, essential hypertension, diabetes mellitus. PAST SURGICAL HISTORY: Hysterectomy, appendectomy, colonoscopy in 2006, basal cell resection, cardiac catheterization, EGDs. SOCIAL HISTORY: Nonsmoker, nonalcohol consumer. FAMILY HISTORY: Noncontributory. ALLERGIES: CODEINE AND LEVOFLOXACIN. MEDICATIONS: List has been reviewed. She has not been on anti-platelets or anticoagulants. REVIEW OF SYSTEMS: HEENT: Denies double vision, blurry vision. RESPIRATORY: Denies shortness of breath. CARDIOVASCULAR: Denies chest pain. DIGESTIVE SYSTEM: Guaiac positive. Anemia. Gastritis history. PHYSICAL EXAMINATION: GENERAL: Morbidly obese patient. The patient appears to be comfortable. HEENT: Head normocephalic, nontraumatic. Mouth and buccal mucosa benign. NECK: Supple, no thyromegaly, no cervical lymphadenopathy. CHEST: Symmetric anatomy, equal expansion. No wheeze, no rhonchi. HEART: Normal sinus rhythm, no gallop, no murmur. ABDOMEN: Obese, large, soft. No hepato-organomegaly. Bowel sounds present. EXTREMITIES: No cyanosis, no pedal edema. NEUROLOGIC: Alert, oriented to time, place and person. IMPRESSION: Anemia, renal insufficiency, hypertension, obesity, gastritis, guaiac positive per Emergency Room, nonalcoholic fatty steatosis of the liver. Apparently there has been difficulty with starting of IV. She is not comfortable in receiving another IV restart. She had chest x-ray reviewed; blunting of the costovertebral angle, bilateral pleural effusion noticed. Comprehensive metabolic panel, BUN and creatinine now normal. Severe hypokalemia of potassium of 2.4 has been addressed. Liver function tests and troponin have been normal. INR 1.0, PT/PTT within normal limits. CBC differential, white blood cell 4.9, H and H of 8 and 26 appreciated, platelets [place], [place] REPORT OF CONSULTATION NAME: ANGELA HARRIS UNIT #: [id number] ROOM: 408 DOCTOR: CHELSEA FRANCIS MD BIRTHDATE: [birth year] of 136 identified. PLAN AND DISCUSSION: We are going to observe her H and H for the next 2-3 days, potassium supplementation and if there is a drop in H and H, then we will organize a colonoscopy. She has already had an EGD with finding of gastritis. CHELSEA FRANCIS MD CM:CONSTR:REPORT OF CONSULTATION 1806 09/22/16 0009 interface
[~2016-09-21 14:33] MED LIST changes: +FOSAMAX70 M1 PO; -LISINOPRIL10 MG PO; +LISINOPRIL40 MG PO; +METFORMIN HCL1000 MG PO
[2016-09-21 14:43] VITALS: BP 167/73
[2016-09-21 15:30] LABS: BASO % 0.2 % (0.0-1.0); EOS # 0.1 10*3/uL (0.0-0.4); EOS % 1.4 % (1.0-4.0); HEMATOCRIT 26.4 % (37.0-47.0); HEMOGLOBIN 8.1 g/dl (12.0-16.0); LYMPH % 21.1 % (27.0-41.0); MEAN CELL VOLUME 87.4 fl (81.0-99.0); MEAN CORPUSCULAR HGB 26.8 pg (27.0-31.0); MEAN CORPUSCULAR HGB CONC 30.7 g/dl (33.0-37.0); MEAN PLATELET VOLUME 10.7 fl (9.6-12.3); MONO # 0.5 10*3/uL (0.1-1.0); MONO % 9.5 % (3.0-9.0); NEUT # 3.3 10*3/uL (2.3-7.9); NEUT % 67.2 % (47.0-73.0); PLATELET COUNT AUTOMATED 136 10*3/uL (130-400); RED BLOOD COUNT 3.02 10*6/uL (4.10-5.10); RED CELL DISTRI WIDTH 17.1 % (0-14.5); WHITE BLOOD COUNT 4.9 10*3/uL (4.8-10.8)
[2016-09-21 15:48] LABS: ALBUMIN 2.9 gm/dl (3.1-4.5); ALKALINE PHOSPHATASE 105 U/L (45-117); BILIRUBIN, TOTAL 0.3 mg/dl (0.2-1.0); BUN 8 mg/dl (7-24); CARBON DIOXIDE 29 mmol/L (21-32); CHLORIDE 103 mmol/L (98-107); EST GLOM FILT AFRICAN AMERICAN > 60 ml/min; GLUCOSE 188 mg/dL (65-99); MAGNESIUM 1.4 mg/dL (1.5-2.1); SGOT/AST 18 IU/L (3-35); SGPT/ALT 19 U/L (12-78); SODIUM 140 mmol/L (136-145); TOTAL PROTEIN 6.5 gm/dL (6.4-8.2)
[2016-09-21 15:51] LABS: POTASSIUM 2.4 mmol/L (3.5-5.1)
[2016-09-21 16:36] VITALS: BP 154/76
[2016-09-21] MEDS ORDERED: SEROQUEL200 MG PO (18:37)
[2016-09-21] MEDS ORDERED: CLONIDINE0.2 MG PO (18:43)
[2016-09-21] MEDS ORDERED: NOVOLOG10 ML SC (18:47)
[2016-09-21 20:00] VITALS: BP 178/87
[2016-09-22] VITALS (13 sets, daily range): BP systolic 126–206; BP diastolic 50–96
[2016-09-22 05:52] LABS: BASO % 0.2 % (0.0-1.0); EOS # 0.1 10*3/uL (0.0-0.4); EOS % 1.6 % (1.0-4.0); HEMATOCRIT 28.6 % (37.0-47.0); HEMOGLOBIN 9.2 g/dl (12.0-16.0); LYMPH # 1.6 10*3/uL (1.3-4.4); LYMPH % 28.7 % (27.0-41.0); MEAN CELL VOLUME 86.9 fl (81.0-99.0); MEAN CORPUSCULAR HGB CONC 32.2 g/dl (33.0-37.0); MONO # 0.5 10*3/uL (0.1-1.0); MONO % 9.6 % (3.0-9.0); NEUT # 3.3 10*3/uL (2.3-7.9); NEUT % 59.5 % (47.0-73.0); PLATELET COUNT AUTOMATED 132 10*3/uL (130-400); RED BLOOD COUNT 3.29 10*6/uL (4.10-5.10); RED CELL DISTRI WIDTH 16.4 % (0-14.5); WHITE BLOOD COUNT 5.6 10*3/uL (4.8-10.8)
[2016-09-22 06:09] LABS: ALBUMIN 2.9 gm/dl (3.1-4.5); ALKALINE PHOSPHATASE 105 U/L (45-117); BILIRUBIN, TOTAL 1.6 mg/dl (0.2-1.0); BUN 8 mg/dl (7-24); CARBON DIOXIDE 28 mmol/L (21-32); CHLORIDE 102 mmol/L (98-107); EST GLOM FILT AFRICAN AMERICAN > 60 ml/min; GLUCOSE 161 mg/dL (65-99); MAGNESIUM 1.3 mg/dL (1.5-2.1); PHOSPHOROUS 1.6 mg/dL (2.5-4.9); POTASSIUM 3.1 mmol/L (3.5-5.1); SGOT/AST 18 IU/L (3-35); SGPT/ALT 18 U/L (12-78); SODIUM 139 mmol/L (136-145); TOTAL PROTEIN 6.6 gm/dL (6.4-8.2)
[2016-09-22 06:29] LABS: PROTHROMBIN TIME 10.9 SECONDS (9.0-12.4)
[2016-09-23] VITALS: BP 164/60
[2016-09-23 06:08] LABS: BASO % 0.4 % (0.0-1.0); EOS # 0.2 10*3/uL (0.0-0.4); EOS % 3.4 % (1.0-4.0); HEMATOCRIT 28.8 % (37.0-47.0); HEMOGLOBIN 9.1 g/dl (12.0-16.0); LYMPH # 1.4 10*3/uL (1.3-4.4); LYMPH % 29.6 % (27.0-41.0); MEAN CORPUSCULAR HGB 27.5 pg (27.0-31.0); MEAN CORPUSCULAR HGB CONC 31.6 g/dl (33.0-37.0); MEAN PLATELET VOLUME 11.7 fl (9.6-12.3); MONO # 0.5 10*3/uL (0.1-1.0); MONO % 9.9 % (3.0-9.0); NEUT # 2.7 10*3/uL (2.3-7.9); NEUT % 56.1 % (47.0-73.0); PLATELET COUNT AUTOMATED 114 10*3/uL (130-400); RED BLOOD COUNT 3.31 10*6/uL (4.10-5.10); WHITE BLOOD COUNT 4.7 10*3/uL (4.8-10.8)
[2016-09-23 06:26] LABS: ALBUMIN 2.9 gm/dl (3.1-4.5); BUN 7 mg/dl (7-24); CARBON DIOXIDE 28 mmol/L (21-32); CHLORIDE 103 mmol/L (98-107); EST GLOM FILT AFRICAN AMERICAN > 60 ml/min; GLUCOSE 290 mg/dL (65-99); MAGNESIUM 1.4 mg/dL (1.5-2.1); PHOSPHOROUS 2.4 mg/dL (2.5-4.9); POTASSIUM 2.9 mmol/L (3.5-5.1); SGOT/AST 17 IU/L (3-35); SGPT/ALT 17 U/L (12-78); SODIUM 140 mmol/L (136-145); TOTAL PROTEIN 6.5 gm/dL (6.4-8.2)
[2016-09-23 06:28] LABS: ALKALINE PHOSPHATASE 101 U/L (45-117); BILIRUBIN, TOTAL 0.5 mg/dl (0.2-1.0)
[2016-09-23 08:00] VITALS: BP 172/70
[2016-09-23 12:00] VITALS: BP 152/57
[2016-09-23 16:00] VITALS: BP 143/76
[2016-09-23 20:00] VITALS: BP 154/62
[2016-09-24] VITALS: BP 116/55
[2016-09-24 06:49] LABS: BASO % 0.5 % (0.0-1.0); EOS # 0.2 10*3/uL (0.0-0.4); EOS % 4.1 % (1.0-4.0); HEMOGLOBIN 9.1 g/dl (12.0-16.0); LYMPH # 1.1 10*3/uL (1.3-4.4); LYMPH % 24.5 % (27.0-41.0); MEAN CELL VOLUME 88.4 fl (81.0-99.0); MEAN CORPUSCULAR HGB 27.7 pg (27.0-31.0); MEAN CORPUSCULAR HGB CONC 31.4 g/dl (33.0-37.0); MEAN PLATELET VOLUME 11.8 fl (9.6-12.3); MONO # 0.4 10*3/uL (0.1-1.0); NEUT # 2.7 10*3/uL (2.3-7.9); NEUT % 60.2 % (47.0-73.0); PLATELET COUNT AUTOMATED 105 10*3/uL (130-400); RED BLOOD COUNT 3.28 10*6/uL (4.10-5.10); RED CELL DISTRI WIDTH 17.2 % (0-14.5); WHITE BLOOD COUNT 4.4 10*3/uL (4.8-10.8)
[2016-09-24 06:57] LABS: ALKALINE PHOSPHATASE 106 U/L (45-117); BILIRUBIN, TOTAL 0.5 mg/dl (0.2-1.0); BUN 6 mg/dl (7-24); CARBON DIOXIDE 29 mmol/L (21-32); CHLORIDE 100 mmol/L (98-107); EST GLOM FILT AFRICAN AMERICAN > 60 ml/min; GLUCOSE 231 mg/dL (65-99); MAGNESIUM 1.6 mg/dL (1.5-2.1); POTASSIUM 3.5 mmol/L (3.5-5.1); SGOT/AST 15 IU/L (3-35); SGPT/ALT 15 U/L (12-78); SODIUM 137 mmol/L (136-145); TOTAL PROTEIN 6.4 gm/dL (6.4-8.2)
[2016-09-24 08:00] VITALS: BP 131/64
[2016-09-24 12:00] VITALS: BP 120/53
[2016-09-24 16:00] VITALS: BP 142/54
[2016-09-24 20:00] VITALS: BP 126/65; BP 142/54
[2016-09-25] VITALS: BP 136/50
[2016-09-25 04:00] VITALS: BP 136/50
[2016-09-25 06:21] LABS: BASO % 0.3 % (0.0-1.0); EOS # 0.2 10*3/uL (0.0-0.4); EOS % 4.3 % (1.0-4.0); HEMATOCRIT 28.8 % (37.0-47.0); HEMOGLOBIN 9.2 g/dl (12.0-16.0); LYMPH % 25.4 % (27.0-41.0); MEAN CELL VOLUME 87.8 fl (81.0-99.0); MEAN CORPUSCULAR HGB CONC 31.9 g/dl (33.0-37.0); MEAN PLATELET VOLUME 11.5 fl (9.6-12.3); MONO # 0.5 10*3/uL (0.1-1.0); MONO % 11.5 % (3.0-9.0); NEUT # 2.3 10*3/uL (2.3-7.9); NEUT % 58.2 % (47.0-73.0); PLATELET COUNT AUTOMATED 98 10*3/uL (130-400); RED BLOOD COUNT 3.28 10*6/uL (4.10-5.10); RED CELL DISTRI WIDTH 16.8 % (0-14.5); WHITE BLOOD COUNT 3.9 10*3/uL (4.8-10.8)
[2016-09-25 06:50] LABS: ALBUMIN 2.8 gm/dl (3.1-4.5); BUN 7 mg/dl (7-24); CARBON DIOXIDE 30 mmol/L (21-32); CHLORIDE 101 mmol/L (98-107); EST GLOM FILT AFRICAN AMERICAN > 60 ml/min; GLUCOSE 257 mg/dL (65-99); MAGNESIUM 1.3 mg/dL (1.5-2.1); PHOSPHOROUS 2.7 mg/dL (2.5-4.9); POTASSIUM 3.6 mmol/L (3.5-5.1); SGOT/AST 16 IU/L (3-35); SGPT/ALT 15 U/L (12-78); SODIUM 138 mmol/L (136-145)
[2016-09-25 06:52] LABS: ALKALINE PHOSPHATASE 97 U/L (45-117); BILIRUBIN, TOTAL 0.4 mg/dl (0.2-1.0); TOTAL PROTEIN 6.4 gm/dL (6.4-8.2)
[2016-09-25 08:00] VITALS: BP 149/58
[2016-09-25 12:00] VITALS: BP 134/53
[2016-09-25] MEDS ORDERED: NOVOLIN 70100 UNIT/1 SQ (12:17)
[2016-09-25] MEDS ORDERED: AMLODIPINE BESY10 MG PO (12:31)
[2016-09-25] MEDS ORDERED: DUONEB 3 MG/3 ML3 M1 INH (12:34)
[2016-09-25 16:00] VITALS: BP 138/55
[2016-09-25 20:00] VITALS: BP 154/56
[2016-09-26] VITALS: BP 119/49; BP 128/55
[2016-09-26 06:46] LABS: BASO % 0.3 % (0.0-1.0); EOS # 0.1 10*3/uL (0.0-0.4); HEMATOCRIT 27.9 % (37.0-47.0); HEMOGLOBIN 8.8 g/dl (12.0-16.0); LYMPH % 26.9 % (27.0-41.0); MEAN CELL VOLUME 88.6 fl (81.0-99.0); MEAN CORPUSCULAR HGB 27.9 pg (27.0-31.0); MEAN CORPUSCULAR HGB CONC 31.5 g/dl (33.0-37.0); MEAN PLATELET VOLUME 11.4 fl (9.6-12.3); MONO # 0.4 10*3/uL (0.1-1.0); MONO % 10.7 % (3.0-9.0); NEUT # 2.1 10*3/uL (2.3-7.9); NEUT % 58.8 % (47.0-73.0); PLATELET COUNT AUTOMATED 92 10*3/uL (130-400); RED BLOOD COUNT 3.15 10*6/uL (4.10-5.10); RED CELL DISTRI WIDTH 16.9 % (0-14.5); WHITE BLOOD COUNT 3.6 10*3/uL (4.8-10.8)
[2016-09-26 07:09] LABS: BUN 7 mg/dl (7-24); CARBON DIOXIDE 31 mmol/L (21-32); CHLORIDE 100 mmol/L (98-107); EST GLOM FILT AFRICAN AMERICAN > 60 ml/min; GLUCOSE 237 mg/dL (65-99); MAGNESIUM 1.5 mg/dL (1.5-2.1); POTASSIUM 3.5 mmol/L (3.5-5.1); SODIUM 138 mmol/L (136-145)
[2016-09-26 08:00] VITALS: BP 152/66
[2016-09-26 12:00] VITALS: BP 138/53
[2016-09-26 16:00] VITALS: BP 136/60
[2016-09-26 20:00] VITALS: BP 153/75
[2016-09-27] VITALS: BP 143/62
[2016-09-27 06:10] LABS: BASO % 0.3 % (0.0-1.0); EOS # 0.1 10*3/uL (0.0-0.4); EOS % 4.3 % (1.0-4.0); HEMATOCRIT 28.9 % (37.0-47.0); LYMPH # 1.2 10*3/uL (1.3-4.4); LYMPH % 38.8 % (27.0-41.0); MEAN CELL VOLUME 88.4 fl (81.0-99.0); MEAN CORPUSCULAR HGB 27.5 pg (27.0-31.0); MEAN CORPUSCULAR HGB CONC 31.1 g/dl (33.0-37.0); MEAN PLATELET VOLUME 11.8 fl (9.6-12.3); MONO # 0.4 10*3/uL (0.1-1.0); MONO % 11.7 % (3.0-9.0); NEUT # 1.3 10*3/uL (2.3-7.9); NEUT % 44.6 % (47.0-73.0); PLATELET COUNT AUTOMATED 87 10*3/uL (130-400); RED BLOOD COUNT 3.27 10*6/uL (4.10-5.10); RED CELL DISTRI WIDTH 16.4 % (0-14.5)
[2016-09-27 06:14] LABS: BUN 7 mg/dl (7-24); CARBON DIOXIDE 31 mmol/L (21-32); CHLORIDE 105 mmol/L (98-107); EST GLOM FILT AFRICAN AMERICAN > 60 ml/min; GLUCOSE 228 mg/dL (65-99); POTASSIUM 4.2 mmol/L (3.5-5.1); SODIUM 140 mmol/L (136-145)
[2016-09-27 08:00] VITALS: BP 166/76
[2016-09-27] MEDS ORDERED: MIRALAX17 GM PO (11:37)
[2016-09-27] MEDS ORDERED: CLONIDINE0.2 MG PO (11:38)
[2016-09-27] MEDS ORDERED: DUONEB 3 MG/3 ML3 M1 INH (11:39)
[2016-09-27] MEDS ORDERED: DULCOLAX10 M1 R (11:39)
[2016-09-27] MEDS ORDERED: MILK OF MA400 MG/5 M PO (11:40)
[2016-09-27] MEDS ORDERED: FOSAMAX70 M1 PO (11:41)
[2016-09-27 12:00] VITALS: BP 159/64
[2016-09-27] MEDS ORDERED: FLAGYL500 MG PO (13:07)
[2016-09-27] MEDS ORDERED: NORCO 5-325 TA1 EACH PO (13:12)
[2016-09-27] MEDS ORDERED: PANTOPRAZOLE SO40 MG PO (13:15)
== END 2016-09-27 11:53 | disposition other institution (70) | DRG 378 ==
LOC: ED 14:33 → 5E 16:20 → EDHOLD 16:20 → 4E 16:43 → 5E 09-22 21:04
PROVIDERS: Family Medicine; Internal Medicine; Nurse Practitioner Family; Student in an Organized Health Care Education/Training Program
PROC: 02HV33Z Insertion of Infusion Device into Superior Vena Cava, Percutaneous Approach (ICD-10-PCS; 2016-09-21)
PROC: B548ZZA Ultrasonography of Superior Vena Cava, Guidance (ICD-10-PCS; 2016-09-21)
PROC: 30233N1 Transfusion of Nonautologous Red Blood Cells into Peripheral Vein, Percutaneous Approach (ICD-10-PCS; principal; 2016-09-22)
DX: K92.2 Gastrointestinal hemorrhage, unspecified (principal); D62 Acute posthemorrhagic anemia; E44.0 Moderate protein-calorie malnutrition; K76.0 Fatty (change of) liver, not elsewhere classified; E83.42 Hypomagnesemia; F33.9 Major depressive disorder, recurrent, unspecified; A09 Infectious gastroenteritis and colitis, unspecified; E11.9 Type 2 diabetes mellitus without complications; I10 Essential (primary) hypertension; E83.39 Other disorders of phosphorus metabolism; E87.6 Hypokalemia; F41.1 Generalized anxiety disorder; E66.01 Morbid (severe) obesity due to excess calories; R19.5 Other fecal abnormalities; K21.9 Gastro-esophageal reflux disease without esophagitis; Z88.5 Allergy status to narcotic agent; Z88.1 Allergy status to other antibiotic agents; Z68.34 Body mass index [BMI] 34.0-34.9, adult; Z85.89 Personal history of malignant neoplasm of other organs and systems; Z90.710 Acquired absence of both cervix and uterus; Z90.49 Acquired absence of other specified parts of digestive tract; Z72.89 Other problems related to lifestyle; Z83.3 Family history of diabetes mellitus; Z80.1 Family history of malignant neoplasm of trachea, bronchus and lung; Z82.49 Family history of ischemic heart disease and other diseases of the circulatory system; Z79.4 Long term (current) use of insulin; Z79.84 Long term (current) use of oral hypoglycemic drugs; Z79.899 Other long term (current) drug therapy

== ENCOUNTER 2017-02-21 10:07 | Inpatient (IN) | payer MEDICARE ==
[2017-02-21] VITALS (9 sets, daily range): BP systolic 132–165; BP diastolic 49–101
[~2017-02-21] VITALS: Ht 162.5 cm; Wt 97.6 kg
[~2017-02-21 10:07] MED LIST changes: +AMLODIPINE BESY10 MG PO; +CLONIDINE0.2 MG PO; +DULCOLAX10 M1 R; +DUONEB 3 MG/3 ML3 M1 INH; +FLAGYL500 MG PO; +MILK OF MA400 MG/5 M PO; +MIRALAX17 GM PO; +NORCO 5-325 TA1 EACH PO; +NOVOLIN 70100 UNIT/1 SQ; +NOVOLOG10 ML SC; +PANTOPRAZOLE SO40 MG PO; +SEROQUEL200 MG PO
[2017-02-21 11:43] LABS: BASO % 0.6 % (0.0-1.0); EOS # 0.2 10*3/uL (0.0-0.4); EOS % 3.4 % (1.0-4.0); HEMATOCRIT 33.9 % (37.0-47.0); HEMOGLOBIN 11.5 g/dl (12.0-16.0); LYMPH % 21.5 % (27.0-41.0); MEAN CELL VOLUME 76.2 fl (81.0-99.0); MEAN CORPUSCULAR HGB 25.8 pg (27.0-31.0); MEAN CORPUSCULAR HGB CONC 33.9 g/dl (33.0-37.0); MEAN PLATELET VOLUME 10.1 fl (9.6-12.3); MONO # 0.4 10*3/uL (0.1-1.0); MONO % 7.5 % (3.0-9.0); NEUT # 3.1 10*3/uL (2.3-7.9); NEUT % 66.1 % (47.0-73.0); PLATELET COUNT AUTOMATED 157 10*3/uL (130-400); RED BLOOD COUNT 4.45 10*6/uL (4.10-5.10); RED CELL DISTRI WIDTH 12.7 % (0-14.5); WHITE BLOOD COUNT 4.7 10*3/uL (4.8-10.8)
[2017-02-21 11:58] LABS: ALBUMIN 4.2 gm/dl (3.1-4.5); CREATININE 1.41 mg/dL (0.55-1.02); POTASSIUM 5.6 mmol/L (3.5-5.1); TOTAL PROTEIN 8.4 gm/dL (6.4-8.2)
[2017-02-21 12:31] LABS: ACT PARTIAL THROMBO TIME 22.8 SECONDS (20.8-31.5)
[2017-02-21 14:14] LABS: BILIRUBIN NEGATIVE (NEGATIVE); BLOOD NEGATIVE (NEGATIVE); CLARITY CLEAR (CLEAR); COLOR YELLOW (YELLOW); GLUCOSE 3+ (NEGATIVE); KETONE 1+ (NEGATIVE); LEUKO ESTERASE NEGATIVE (NEGATIVE); NITRITE NEGATIVE (NEGATIVE); PH 5.5 (5.0-9.0); SPECIFIC GRAVITY <= 1.005 (1.005-1.030); UROBILINOGEN 0.2 E.U./dl (0.2-1.0)
[2017-02-21 14:28] LABS: WBC 0-2 wbc/hpf (0-5)
[2017-02-21 17:07] LABS: IRON 110 ug/dL (50-170); TOTAL IRON BINDING CAPACITY 366 ug/dl (250-450)
[2017-02-21] MEDS ORDERED: SEROQUEL300 MG PO (17:57)
[2017-02-21] MEDS ORDERED: HUMALOG100 UNIT/1 SQ (17:59)
[2017-02-22] VITALS: BP 155/63
[2017-02-22 06:09] LABS: BASO % 0.7 % (0.0-1.0); EOS # 0.3 10*3/uL (0.0-0.4); EOS % 6.1 % (1.0-4.0); HEMATOCRIT 29.9 % (37.0-47.0); HEMOGLOBIN 10.2 g/dl (12.0-16.0); LYMPH # 1.6 10*3/uL (1.3-4.4); LYMPH % 37.9 % (27.0-41.0); MEAN CELL VOLUME 77.3 fl (81.0-99.0); MEAN CORPUSCULAR HGB 26.4 pg (27.0-31.0); MEAN CORPUSCULAR HGB CONC 34.1 g/dl (33.0-37.0); MEAN PLATELET VOLUME 9.9 fl (9.6-12.3); MONO # 0.4 10*3/uL (0.1-1.0); MONO % 8.9 % (3.0-9.0); NEUT # 1.9 10*3/uL (2.3-7.9); NEUT % 45.7 % (47.0-73.0); PLATELET COUNT AUTOMATED 129 10*3/uL (130-400); RED BLOOD COUNT 3.87 10*6/uL (4.10-5.10); RED CELL DISTRI WIDTH 12.7 % (0-14.5); WHITE BLOOD COUNT 4.3 10*3/uL (4.8-10.8)
[2017-02-22 06:40] LABS: ALBUMIN 3.5 gm/dl (3.1-4.5); CHLORIDE 99 mmol/L (98-107); CREATININE 0.91 mg/dL (0.55-1.02); SGOT/AST 46 IU/L (3-35); SGPT/ALT 42 U/L (12-78)
[2017-02-22 06:49] LABS: ALKALINE PHOSPHATASE 110 U/L (45-117)
[2017-02-22 06:56] LABS: BUN 19 mg/dl (7-24)
[2017-02-22 07:04] LABS: POTASSIUM 4.1 mmol/L (3.5-5.1); SODIUM 139 mmol/L (136-145)
[2017-02-22 08:00] VITALS: BP 156/76
[2017-02-22 08:15] LABS: IMMUNOGLOBULIN G, QNT 794 mg/dL (700-1600); IMMUNOGLOBULIN M, QNT 97 mg/dL (26-217); TOTAL PROTEIN, SERUM 7.1 g/dL (6.0-8.5)
[2017-02-22 12:00] VITALS: BP 170/63
[2017-02-22 13:05] LABS: A/G RATIO 1.1 (0.7-1.7); ALBUMIN 3.7 g/dL (2.9-4.4); ALPHA-1-GLOBULIN 0.2 g/dL (0.0-0.4); BETA GLOBULIN 1.2 g/dL (0.7-1.3); GLOBULIN, TOTAL 3.4 g/dL (2.2-3.9); M-SPIKE Not Observed g/dL (Not Observed)
[2017-02-22 14:18] LABS: VITAMIN D, 25-HYDROXY 14.1 ng/mL (30-100)
[2017-02-22 16:00] VITALS: BP 104/47; BP 188/67
[2017-02-22 20:00] VITALS: BP 136/68
[2017-02-23] VITALS: BP 180/74
[2017-02-23 01:00] VITALS: BP 140/68
[2017-02-23 07:09] LABS: BASO % 0.8 % (0.0-1.0); EOS # 0.3 10*3/uL (0.0-0.4); EOS % 6.2 % (1.0-4.0); HEMATOCRIT 32.6 % (37.0-47.0); HEMOGLOBIN 11.1 g/dl (12.0-16.0); LYMPH # 1.9 10*3/uL (1.3-4.4); LYMPH % 36.3 % (27.0-41.0); MEAN CELL VOLUME 77.6 fl (81.0-99.0); MEAN CORPUSCULAR HGB 26.4 pg (27.0-31.0); MEAN PLATELET VOLUME 9.6 fl (9.6-12.3); MONO # 0.6 10*3/uL (0.1-1.0); MONO % 10.6 % (3.0-9.0); NEUT # 2.4 10*3/uL (2.3-7.9); NEUT % 45.5 % (47.0-73.0); PLATELET COUNT AUTOMATED 144 10*3/uL (130-400); RED CELL DISTRI WIDTH 12.8 % (0-14.5); WHITE BLOOD COUNT 5.3 10*3/uL (4.8-10.8)
[2017-02-23 07:19] LABS: BUN 15 mg/dl (7-24); CHLORIDE 100 mmol/L (98-107); CREATININE 0.91 mg/dL (0.55-1.02); POTASSIUM 4.4 mmol/L (3.5-5.1); SODIUM 136 mmol/L (136-145)
[2017-02-23 08:00] VITALS: BP 138/78
[2017-02-23 12:00] VITALS: BP 140/76
[2017-02-23] MEDS ORDERED: ATORVASTATIN CA40 M1 PO (13:09)
[2017-02-23] MEDS ORDERED: AMLODIPINE BESYL5 MG PO (13:09)
[2017-02-23] MEDS ORDERED: GABAPENTIN100 M2 PO (13:09)
== END 2017-02-23 15:32 | disposition home or self-care (01) | DRG 637 ==
LOC: ED 10:07 → 4E 14:59 → EDHOLD 14:59 → 4E 15:08
PROVIDERS: Nurse Practitioner; Student in an Organized Health Care Education/Training Program
DX: E11.65 Type 2 diabetes mellitus with hyperglycemia (principal); N17.0 Acute kidney failure with tubular necrosis; E83.52 Hypercalcemia; E66.01 Morbid (severe) obesity due to excess calories; C44.91 Basal cell carcinoma of skin, unspecified; D72.810 Lymphocytopenia; E87.5 Hyperkalemia; K76.0 Fatty (change of) liver, not elsewhere classified; E88.09 Other disorders of plasma-protein metabolism, not elsewhere classified; R07.89 Other chest pain; D72.829 Elevated white blood cell count, unspecified; K21.9 Gastro-esophageal reflux disease without esophagitis; D50.9 Iron deficiency anemia, unspecified; R74.8 Abnormal levels of other serum enzymes; Z79.4 Long term (current) use of insulin; F32.9 Major depressive disorder, single episode, unspecified; F41.1 Generalized anxiety disorder; D49.7 Neoplasm of unspecified behavior of endocrine glands and other parts of nervous system; I10 Essential (primary) hypertension; Z79.84 Long term (current) use of oral hypoglycemic drugs; Z90.49 Acquired absence of other specified parts of digestive tract; Z90.710 Acquired absence of both cervix and uterus; Z83.3 Family history of diabetes mellitus; Z80.1 Family history of malignant neoplasm of trachea, bronchus and lung; Z82.49 Family history of ischemic heart disease and other diseases of the circulatory system; Z80.8 Family history of malignant neoplasm of other organs or systems; Z91.14 Patient's other noncompliance with medication regimen; Z88.6 Allergy status to analgesic agent; Z88.1 Allergy status to other antibiotic agents; Z68.36 Body mass index [BMI] 36.0-36.9, adult

== ENCOUNTER 2018-10-19 11:06 | Emergency (ER) | payer OTHER ==
[~2018-10-19] VITALS: Wt 104.3 kg
[~2018-10-19 11:06] MED LIST changes: +ATORVASTATIN CA40 M1 PO; +GABAPENTIN100 M2 PO; +HUMALOG100 UNIT/1 SQ; +SEROQUEL300 MG PO
[2018-10-19] MEDS ORDERED: ROBAXIN500 M1 PO (12:18)
== END 2018-10-19 12:34 | disposition home or self-care (01) ==
LOC: ED 11:06
DX: S70.01XA Contusion of right hip, initial encounter (principal); R10.9 Unspecified abdominal pain; Z88.5 Allergy status to narcotic agent; Z88.1 Allergy status to other antibiotic agents; Z79.899 Other long term (current) drug therapy; Z79.4 Long term (current) use of insulin; W19.XXXA Unspecified fall, initial encounter; Y93.89 Activity, other specified; Y92.89 Other specified places as the place of occurrence of the external cause; Y99.8 Other external cause status

== ENCOUNTER 2019-06-22 05:29 | Emergency (ER) | payer OTHER ==
[~2019-06-22] VITALS: Ht 162.5 cm; Wt 88.5 kg
[~2019-06-22 05:29] MED LIST changes: +ROBAXIN500 M1 PO
[2019-06-22 06:15] LABS: BILIRUBIN NEGATIVE (NEGATIVE); BLOOD NEGATIVE (NEGATIVE); CLARITY CLEAR (CLEAR); COLOR YELLOW (YELLOW); GLUCOSE 1+ (NEGATIVE); KETONE NEGATIVE (NEGATIVE); PH 6.5 (5.0-9.0)
[2019-06-22 06:16] LABS: BACTERIA TRACE; LEUKO ESTERASE NEGATIVE (NEGATIVE); NITRITE NEGATIVE (NEGATIVE); UROBILINOGEN 0.2 E.U./dl (0.2-1.0)
[2019-06-22 06:32] LABS: BASO % 0.4 % (0.0-1.0); EOS # 0.1 10*3/uL (0.0-0.4); EOS % 0.9 % (1.0-4.0); HEMATOCRIT 33.7 % (37.0-47.0); LYMPH # 0.7 10*3/uL (1.3-4.4); LYMPH % 10.5 % (27.0-41.0); MEAN CELL VOLUME 82.4 fl (81.0-99.0); MEAN CORPUSCULAR HGB 25.2 pg (27.0-31.0); MEAN CORPUSCULAR HGB CONC 30.6 g/dl (33.0-37.0); MEAN PLATELET VOLUME 10.9 fl (9.6-12.3); MONO # 0.5 10*3/uL (0.1-1.0); MONO % 7.4 % (3.0-9.0); NEUT # 5.5 10*3/uL (2.3-7.9); NEUT % 80.1 % (47.0-73.0); PLATELET COUNT AUTOMATED 146 10*3/uL (130-400); RED BLOOD COUNT 4.09 10*6/uL (4.10-5.10); RED CELL DISTRI WIDTH 14.6 % (0-14.5); WHITE BLOOD COUNT 6.9 10*3/uL (4.8-10.8)
[2019-06-22 06:47] LABS: ALBUMIN 3.5 gm/dl (3.1-4.5); ALKALINE PHOSPHATASE 112 U/L (45-117); BUN 23 mg/dl (7-24); CHLORIDE 106 mmol/L (98-107); CREATININE 0.95 mg/dL (0.55-1.02); POTASSIUM 4.2 mmol/L (3.5-5.1); SGOT/AST 21 IU/L (3-35); SGPT/ALT 27 U/L (12-78); SODIUM 139 mmol/L (136-145); TOTAL PROTEIN 7.5 gm/dL (6.4-8.2)
== END 2019-06-22 10:06 | disposition home or self-care (01) ==
LOC: ED 05:29
PROVIDERS: Emergency Medicine
DX: R42 Dizziness and giddiness (principal); Z20.828 Contact with and (suspected) exposure to other viral communicable diseases; R68.83 Chills (without fever); R25.1 Tremor, unspecified; R53.1 Weakness; E11.9 Type 2 diabetes mellitus without complications; I10 Essential (primary) hypertension; E66.01 Morbid (severe) obesity due to excess calories; K21.9 Gastro-esophageal reflux disease without esophagitis; F32.9 Major depressive disorder, single episode, unspecified; E03.9 Hypothyroidism, unspecified; Z88.5 Allergy status to narcotic agent; Z88.1 Allergy status to other antibiotic agents; Z79.899 Other long term (current) drug therapy; Z79.4 Long term (current) use of insulin; Z98.61 Coronary angioplasty status; Z90.710 Acquired absence of both cervix and uterus; Z90.49 Acquired absence of other specified parts of digestive tract

== ENCOUNTER 2019-10-08 09:31 | Emergency (ER) | payer OTHER ==
[~2019-10-08] VITALS: Wt 93.0 kg
[2019-10-08] MEDS ORDERED: FUROSEMIDE40 MG PO (09:46)
[2019-10-08 10:45] LABS: BASO % 0.5 % (0.0-1.0); EOS # 0.1 10*3/uL (0.0-0.4); EOS % 3.2 % (1.0-4.0); HEMATOCRIT 30.9 % (37.0-47.0); MEAN CELL VOLUME 80.1 fl (81.0-99.0); MEAN CORPUSCULAR HGB 24.9 pg (27.0-31.0); MEAN CORPUSCULAR HGB CONC 31.1 g/dl (33.0-37.0); MEAN PLATELET VOLUME 10.6 fl (9.6-12.3); MONO # 0.4 10*3/uL (0.1-1.0); MONO % 9.2 % (3.0-9.0); NEUT # 2.8 10*3/uL (2.3-7.9); NEUT % 64.6 % (47.0-73.0); PLATELET COUNT AUTOMATED 130 10*3/uL (130-400); RED BLOOD COUNT 3.86 10*6/uL (4.10-5.10); RED CELL DISTRI WIDTH 14.8 % (0-14.5); WHITE BLOOD COUNT 4.4 10*3/uL (4.8-10.8)
[2019-10-08 10:59] LABS: ACT PARTIAL THROMBO TIME 23.9 SECONDS (20.0-32.1)
[2019-10-08 11:08] LABS: ALBUMIN 3.9 gm/dl (3.1-4.5); ALKALINE PHOSPHATASE 107 U/L (45-117); BUN 35 mg/dl (7-24); CHLORIDE 100 mmol/L (98-107); CREATININE 1.49 mg/dL (0.55-1.02); POTASSIUM 4.2 mmol/L (3.5-5.1); SGOT/AST 19 IU/L (3-35); SGPT/ALT 21 U/L (12-78); SODIUM 134 mmol/L (136-145); TOTAL PROTEIN 8.1 gm/dL (6.4-8.2)
[2019-10-08 11:14] LABS: TROPONIN I < 0.015 ng/ml (<0.045)
[2019-10-08] MEDS ORDERED: CEPHALEXIN500 M1 PO (11:58)
== END 2019-10-08 12:12 | disposition home or self-care (01) ==
LOC: ED 09:31
PROVIDERS: Emergency Medicine
DX: S90.425A Blister (nonthermal), left lesser toe(s), initial encounter (principal); L08.9 Local infection of the skin and subcutaneous tissue, unspecified; D64.9 Anemia, unspecified; D72.819 Decreased white blood cell count, unspecified; E11.22 Type 2 diabetes mellitus with diabetic chronic kidney disease; I12.9 Hypertensive chronic kidney disease with stage 1 through stage 4 chronic kidney disease, or unspecified chronic kidney disease; N18.3 Chronic kidney disease, stage 3 (moderate); I10 Essential (primary) hypertension; E11.42 Type 2 diabetes mellitus with diabetic polyneuropathy; E11.9 Type 2 diabetes mellitus without complications; Z94.0 Kidney transplant status; Z88.6 Allergy status to analgesic agent; Z88.1 Allergy status to other antibiotic agents; Z79.899 Other long term (current) drug therapy; Z79.4 Long term (current) use of insulin; X58.XXXA Exposure to other specified factors, initial encounter; Y93.89 Activity, other specified; Y92.89 Other specified places as the place of occurrence of the external cause; Y99.8 Other external cause status

== ENCOUNTER 2019-11-01 10:38 | Inpatient (IN) | payer OTHER ==
[~2019-11-01] VITALS: Ht 162.6 cm; Wt 86.2 kg
[~2019-11-01 10:38] MED LIST changes: +CEPHALEXIN500 M1 PO; +FUROSEMIDE40 MG PO
[2019-11-01 10:49] VITALS: BP 151/54
[2019-11-01 11:29] LABS: BASO % 0.3 % (0.0-1.0); EOS # 0.2 10*3/uL (0.0-0.4); EOS % 2.2 % (1.0-4.0); LYMPH # 0.7 10*3/uL (1.3-4.4); LYMPH % 7.9 % (27.0-41.0); MEAN CELL VOLUME 81.1 fl (81.0-99.0); MEAN CORPUSCULAR HGB 25.6 pg (27.0-31.0); MEAN CORPUSCULAR HGB CONC 31.5 g/dl (33.0-37.0); MEAN PLATELET VOLUME 11.3 fl (9.6-12.3); MONO # 0.7 10*3/uL (0.1-1.0); MONO % 7.5 % (3.0-9.0); NEUT # 7.5 10*3/uL (2.3-7.9); NEUT % 81.6 % (47.0-73.0); PLATELET COUNT AUTOMATED 186 10*3/uL (130-400); RED BLOOD COUNT 4.07 10*6/uL (4.10-5.10); RED CELL DISTRI WIDTH 15.3 % (0-14.5); WHITE BLOOD COUNT 9.2 10*3/uL (4.8-10.8)
[2019-11-01 11:34] LABS: BILIRUBIN NEGATIVE; BLOOD TRACE-LYSED (NEGATIVE); CLARITY CLEAR (CLEAR); COLOR YELLOW (YELLOW); GLUCOSE 3+; KETONE 1+; LEUKO ESTERASE NEGATIVE (NEGATIVE); NITRITE NEGATIVE (NEGATIVE); PH 5.5 (4.5-8.0); SPECIFIC GRAVITY > 1.030 (1.001-1.030); UROBILINOGEN 0.2 E.U./dl (0.0-1.0)
[2019-11-01 11:38] LABS: BACTERIA TRACE; YEAST 1+
[2019-11-01 11:44] LABS: ALBUMIN 3.7 gm/dl (3.1-4.5); CREATININE 2.18 mg/dL (0.55-1.02); POTASSIUM 4.9 mmol/L (3.5-5.1); TOTAL PROTEIN 7.9 gm/dL (6.4-8.2)
[2019-11-01 13:03] VITALS: BP 169/86
[2019-11-01 13:38] VITALS: BP 144/78
--- NOTE | 2019-11-01 13:38 | NUR ---
Time: 1337 A 69 year old FEMALE admitted to under services of MARIA LUISA PEÑA DO. Pt. arrived via stretcher from ER. Chief complaint: FREQUENT FALLS. MARYA SAMPSON
[2019-11-01] MEDS ORDERED: AMLODIPINE BESY10 MG PO (15:02)
[2019-11-01] MEDS ORDERED: KLONOPIN2 M1 PO (15:04)
[2019-11-01] MEDS ORDERED: MIRTAZAPINE15 M2 PO (15:05)
[2019-11-01] MEDS ORDERED: Lopressor25 MG PO (15:09)
[2019-11-01] MEDS ORDERED: TRADJENTA5 M1 PO (15:11)
[2019-11-01] MEDS ORDERED: QUETIAPINE FUM300 M1 PO (15:11)
[2019-11-01] MEDS ORDERED: LANTUS SOL100 UNIT/1 SC (15:14)
[2019-11-01] MEDS ORDERED: VICTOZA 2-0.6 MG/0.1 SQ (15:15)
--- NOTE | 2019-11-01 15:48 | NUR ---
DR. COOPER ON FLOOR ADVISED THAT PATIENTS MED REC WAS DONE, HE REQUESTED THAT I CHECK BLOOD SUGAR NOW, I HAD JUST GIVEN LANTUS 95 UNITS ORDERED AND INTIATED IV FLUIDS, BLOOD SUGAR READ HI, ORDERED GLUCOSE REFLEX STAT.
--- NOTE | 2019-11-01 15:58 | NUR ---
ATTEMPTED TO CALL CONSULT TO PODIATRY RESIDENT, TRANSFERED TO MAILBOX THAT WAS FULL.
[2019-11-01 16:00] VITALS: BP 137/62
--- NOTE | 2019-11-01 16:01 | NUR ---
RECEIVED CALL BACK FROM DR. ESTRADA ADVISED OF CONSULT.
--- NOTE | 2019-11-01 16:43 | NUR ---
CALL PLACED TO HOSPITALIST LINE SPOKE TO DR. COOPER ADVISED OF CRITICAL BS OF 660
--- NOTE | 2019-11-01 17:12 | NUR ---
CALL PLACED TO HOSPITALIST LINE, SPOKE TO DR. COOPER ASKED TO SEE IF I WAS TO GIVE SLIDING SCALED ADVISED NOT TO GIVE.
[2019-11-01 17:19] LABS: CREATININE 1.64 mg/dL (0.55-1.02); POTASSIUM 5.1 mmol/L (3.5-5.1)
--- NOTE | 2019-11-01 17:20 | NUR ---
RECEIVED CALL FROM LAB WITH CRITICAL GLUCOSE OF 601
--- NOTE | 2019-11-01 17:22 | NUR ---
CALL PLACED TO HOSPITALIST LINE TO REPORT CRITICAL LAB, NO ANSWER LEFT MESSAGE FOR CALL BACK.
--- NOTE | 2019-11-01 17:28 | NUR ---
RECIEVED CALL BACK FROM DR. COOPER ADVISED HIM OF CRITICAL RESULT OF 602, NO NEW ORDERED AT THIS TIME.
[2019-11-01 20:00] VITALS: BP 147/55
--- NOTE | 2019-11-01 20:06 | NUR ---
NOTIFIED OF RN CHECKING PT'S BSG AND IT READING HI, WITH REPEAT READING 585. DISCUSSED EARLIER GLUCOSE OF 871 AND BOLUS GIVEN IN ER. ALSO AWARE OF 95 UNITS OF LANTUS GIVEN AT 1532. INSTRUCTED TO SEE WHAT GLUCOSE IS ON 2100 BMP AND CALL IF CRITICAL. AWARE OF IV FLUIDS ON PAUSE PT DOES NOT HAVE IV SITE PRESENTLY. SHE PULLED OTHER SITE OUT. RN ATTEMPTING ANOTHER SITE AT THIS TIME.
--- NOTE | 2019-11-01 21:25 | NUR ---
RN WAITING FOR 2100 BMP INSTEAD OF PRICKING PT'S FINGER AGAIN FOR BSG. THIS RN CALLED LAB TO QUESTION WHEN THIS WOULD RESULT. STILL HAS NOT BEEN DRAWN. WILL SEND SOMEONE UP TO DRAW NOW.
[2019-11-01 22:02] LABS: CREATININE 1.5 mg/dL (0.55-1.02); POTASSIUM 4.5 mmol/L (3.5-5.1)
--- NOTE | 2019-11-01 22:08 | NUR ---
NOTIFIED OF CRITICAL GLUCOSE 532. INSTRUCTED TO GIVE 10 UNITS SLIDING SCALE COVERAGE. AWARE OF 95 UNITS OF LANTUS GIVEN AT 1532 THIS AFTERNOON AND IVF RUNNING @ 125 ML/HR.
[2019-11-02] VITALS: BP 128/50
--- NOTE | 2019-11-02 03:04 | NUR ---
BSG 297 AT THIS TIME. PT REMAINS DROWSY, BUT EASILY AROUSABLE. WATER PROVIDED PER REQUEST. PT DENIES ANY OTHER NEEDS. WILL MONITOR. CALL LIGHT IN REACH.
[2019-11-02 04:52] LABS: CREATININE 1.32 mg/dL (0.55-1.02); POTASSIUM 3.7 mmol/L (3.5-5.1)
[2019-11-02 05:03] LABS: THYROID STIM HORMONE (HS) 3.64 uIU/ml (0.358-4.75)
[2019-11-02 06:03] LABS: BASO % 0.4 % (0.0-1.0); EOS # 0.3 10*3/uL (0.0-0.4); EOS % 5.4 % (1.0-4.0); HEMATOCRIT 27.5 % (37.0-47.0); LYMPH # 1.3 10*3/uL (1.3-4.4); LYMPH % 25.1 % (27.0-41.0); MEAN CORPUSCULAR HGB 25.3 pg (27.0-31.0); MEAN PLATELET VOLUME 11.5 fl (9.6-12.3); MONO # 0.4 10*3/uL (0.1-1.0); MONO % 8.3 % (3.0-9.0); NEUT # 3.1 10*3/uL (2.3-7.9); NEUT % 60.2 % (47.0-73.0); PLATELET COUNT AUTOMATED 151 10*3/uL (130-400); RED BLOOD COUNT 3.48 10*6/uL (4.10-5.10); RED CELL DISTRI WIDTH 15.3 % (0-14.5); WHITE BLOOD COUNT 5.2 10*3/uL (4.8-10.8)
--- NOTE | 2019-11-02 06:53 | NUR ---
MARLEN SCHEDULED FOR 729 NOT YET GIVEN PT STATES SHE WANTS TO SLEEP. STATES TO WAIT UNTIL NEXT BSG CHECK TO DECIDE. PT IS VERY DROWSY, BUT HAS BEEN UP ALL NIGHT DUE TO Q1H BSG CHECKS. PT RESPONDS TO VERBAL/TACTILE STIMULI, BUT STATES SHE WANTS TO SLEEP.
--- NOTE | 2019-11-02 07:00 | NUR ---
ARRIVED ON SHIFT, REPORT RECEIVED FROM OFFGOING NURSE, ASSUMED CARE OF PATIENT.
[2019-11-02 07:07] LABS: VITAMIN D, 25-HYDROXY 15.6 ng/mL (30-100)
--- NOTE | 2019-11-02 07:25 | NUR ---
INTRODUCED SELF TO PATIENT BED IN LOW POSITION WITH WHEEL LOCKS ENGAGED, SIDE RAILS UP X 2 FOR TURNING AND REPOSITIONING, BED ALARM ON, CALL LIGHT WITHIN REACH, NO NEEDS VOICED AT THIS TIME, WHITE BOARD UPDATED.
--- NOTE | 2019-11-02 07:25 | NUR ---
REPORT GIVEN TO AM SHIFT RN. AWARE 9022 HUMALOG NOT YET GIVEN.
[2019-11-02 08:00] VITALS: BP 130/60
--- NOTE | 2019-11-02 08:15 | NUR ---
MEJIA 0800 BLOOD SUGAR CHECKED RESULT 272, WHICH CALLS FOR 10 UNITS, CALL PLACED TO HOSPITALISTS LINE, OKAYED TO GIVE 10 UNITS PER SLIDING SCALE BY DR. MARTINES, AND TO CHANGE GLUCOSE MONITORING TO Q2H.
--- NOTE | 2019-11-02 08:24 | NUR ---
Shift chart check completed.
--- NOTE | 2019-11-02 09:00 | NUR ---
Gate Shear Operator in to talk to patient. Patient states lives at home with alone. There are no steps in the home. Physician: january zavaleta [facility]acy: [facility] Home health services: none Patient's level of ADLs: MINIMAL ASSIST Patient has working utilities: all working DME: crutch Follow-up physician's appointment after d/c: will be made by hospitalist nurse director upon discharge Does patient want to access PORTAL?: no Discharge plan discussed with patient, she states she lives at home alone, she uses a crutch for ambulation and needs some assistance with adls, she states she has been falling at home, discussed with her a short term usp for 5 days of rehab and 24 hour care prior to returning home, she was agreeable to this, she stated her family preservation caseworker, Mariah Liriano suggested she go to [facility] nursing facility for skilled care, she was agreeable to a referral being made to [facility], social work job titles will make the referral. will need an insurance company approval prior to being discharged to [facility], case management will follow. NABIL HUDDLESTON
--- NOTE | 2019-11-02 09:45 | NUR ---
DOCTOR JACKSON ON FLOOR, ORDER RECEIVED TO CHANGE BS BACK TO /HS
--- NOTE | 2019-11-02 09:46 | NUR ---
PHYSICAL THERAPY PT screen and eval orders received will follow. Timo Lee SPT Selina Grace PT
--- NOTE | 2019-11-02 11:15 | NUR ---
PHYSICAL THERAPY Physical Therapy evaluation completed on 4th floor with full evaluation to follow. Recommend physical therapy per plan of care and SNF upon discharge. Thank you for this referral. Timo Lee SPT Selina Grace PT
--- NOTE | 2019-11-02 11:35 | NUR ---
Occupational Therapy evaluation completed on 4 with full eval to follow Precautions include fall risk,dizziness with positional changes since fall and hitting head, numbness in BLE/BUEs, moderate complexity level 64776. Recommend OT per POC and SNF to enable return home alone at independent level. Thank you for this referral. Gloria Mcgovern OTR/l
--- NOTE | 2019-11-02 11:49 | NUR ---
DIRECTOR OUTCOMES FAXED NEW REFERRAL TO [facility] AWAITING PT/OT EVALS TO COMPLETE. PRECERT IS NEEDED FOR PLACEMENT.
[2019-11-02 12:00] VITALS: BP 132/55
--- NOTE | 2019-11-02 13:21 | NUR ---
OT NOTE Pt sitting in recliner upon arrival, agreeable to OT session. Identified by name and date of with no complaints. Sit-stand from recliner CGA with quad cane for support. Functional mobility from recliner to bathroom CGA with quad cane in right hand for safety. Pt required verbal prompts for quad cane safety with poor carry over. Transferring on and off commode CGA with grab bar and quad cane. Clothing management and hygiene both SBA. Pt stood sink side unsupported to wash hands at CGA. Balance F+. Functional mobility from bathroom to room window back to bed CGA with quad cane in right hand. Pt required multiple verbal prompts for quad cane safety, with poor carry over. Pt was able to position self in bed at SBA. Call light in reach and alarm active. Continue d/c recommended SNF. [facility]
--- NOTE | 2019-11-02 14:45 | NUR ---
ABRASIVE MIXER FAXED PT/OT EVALS TO [facility].
[2019-11-02 16:00] VITALS: BP 133/64
--- NOTE | 2019-11-02 16:32 | NUR ---
Occupational Therapy screen received and evaluation completed. Thank you for this referral. Gloria Mcgovern OTR/l
[2019-11-02 20:00] VITALS: BP 145/62
--- NOTE | 2019-11-02 23:42 | NUR ---
PO TYLENOL GIVEN FOR C/O GENERALIZED ALL OVER PAIN RATED 5/10. WILL MONITOR. PT ALSO REQUESTING BSG CHECKED-CURRENTLY 304. WILL MONITOR.
[2019-11-03] VITALS: BP 114/57
[2019-11-03 07:25] LABS: POTASSIUM 3.8 mmol/L (3.5-5.1)
[2019-11-03 07:26] LABS: CREATININE 1.13 mg/dL (0.55-1.02)
[2019-11-03 08:00] VITALS: BP 158/69
--- NOTE | 2019-11-03 08:07 | NUR ---
ARMATURE AND ROTOR WINDER COMPLETED HENS.
--- NOTE | 2019-11-03 08:10 | NUR ---
PHYSICAL THERAPY Patient seen this am 1;1 for therapy visit and was sitting up on EOB with OT veterinary assistant present upon therapist arrival. Patient identified by name / and reports c/o of mild dizziness. Patient performed sit to stand transfer, CGA, with use of WBQC, v/c for visual fixation technique. Patient ambulated 7'x 1, demonstrating unsteady gait pattern and offered use of wh walker. Patient immediately demonstrated improved gait pattern, stating she felt safer with walker, ambulating additional 30'x 1, CGA. Patient returned to bedside chair with mild fatigue and remained in chair with call light, tray table, body alarm for safety. Will continue per POC as tolerated, total treatment time 15 minutes. Stanislav Nieves, LEAD HANDLER
--- NOTE | 2019-11-03 08:20 | NUR ---
OT NOTE Pt laying supine in bed agreeable to 25 minute OT session. Identified by name and date of with complaints of dizziness. Transfer supine to EOB SBA. Educated pt on importance of slowing down when switching positions due to dizziness. Pt bent at waist to fix hospital socks at SBA. Sitting balance F+. Sit-stand from EOB CGA with quad cane. Educated pt on visual fixation for dizziness. Functional mobility from EOB to bathroom CGA with quad cane switching to w/w do to poor quad cane safety and UB support. Verbal prompts needed in bathroom due to poor command follow with walker navigation. Transferring on and off commode CGA with w/w and grab bar. Functional mobility from bathroom to recliner CGA with w/w for safety. Pt was able to tolerate approx 10 minutes of activity without fatigue. Pt left in recliner with alarm active and call light in reach. Continue d/c recommended SNF. [facility]
--- NOTE | 2019-11-03 09:00 | NUR ---
case management visits with patient, she has been referred to and accepted by [facility], she will be discharged when insurance precert is obtained, case management will follow
--- NOTE | 2019-11-03 10:59 | NUR ---
JAY RECEIVED CALL FROM [facility] TRANSITIONAL COORDINATOR. SHE REQUESTED DISCHARGE BE FAXED TO HER AT [phone].
[2019-11-03 12:00] VITALS: BP 125/55
--- NOTE | 2019-11-03 12:34 | NUR ---
PRECERT IS PENDING, HOWEVER, PER [facility] PATIENT CAN ADMIT TODAY. PUMP INSTALLER NOTIFIED RN HOSPITALIST COORDINATOR PARKER.
[2019-11-03] MEDS ORDERED: Humalog SQ (13:11)
[2019-11-03] MEDS ORDERED: ATORVASTATIN CA80 M1 PO (13:11)
[2019-11-03] MEDS ORDERED: Lantus SC (13:11)
--- NOTE | 2019-11-03 13:41 | NUR ---
QUANTITATIVE CONSULTANT RECEIVED NOTICE OF PATIENT DISCHARGE. QUANTITATIVE CONSULTANT SPOKE TO WORK ABSTRACT SEARCHER WHO STATED RN WAS ASKING FOR A 5PM TRANSPORT. QUANTITATIVE CONSULTANT SPOKE WITH [facility]. THEY ARE ABLE TO TRANSPORT THE PATIENT AT 5PM AT THE ER DOORS. QUANTITATIVE CONSULTANT INFORMED TRINITY PEREZ. QUANTITATIVE CONSULTANT CONTACTED PATIENTS SON. QUANTITATIVE CONSULTANT ANSWERED ALL QUESTIONS. QUANTITATIVE CONSULTANT TO FAX DISCHARGE ORDERS TO [facility].
--- NOTE | 2019-11-03 13:46 | NUR ---
JAY FAXED DISCHARGE SUMMARY TO [facility] [phone].
--- NOTE | 2019-11-03 13:48 | NUR ---
OT NOTE Upon arrival pt was in bathroom on commode agreeable to 15 minute OT session. Identified by name and date of with no complaints to date. Transferring on and off commode SBA with w/w and grab bar for safety. Clothing management/hygiene SBA with w/w. Pt stood sink side unsupported to wash hands at CGA. Verbal cues to remind pt to use walking during mobility. functional mobility from bathroom to EOB CGA with w/w. Pt was able to postion self in bed at SBA. Call light in reach and alarm active. Continue d/c recommended SNF. [facility]
--- NOTE | 2019-11-03 16:36 | NUR ---
Discharge instructions reviewed with patient/family. Patient receptive and verbalizes understanding. Follow-up care arranged. Written instructions given to patient/family. CÉSAR SORTO
--- NOTE | 2019-11-04 15:29 | NUR ---
PHYSICAL THERAPY CO-SIGN I approve of the Physical Therapy notes written above. Selina Grace PT
--- NOTE | 2019-11-04 16:12 | NUR ---
OCCUPATIONAL THERAPY CO-SIGN I approve of the Occupational Therapy notes written above. ANGELA GARNER OTR/[facility]
== END 2019-11-03 17:59 | disposition other institution (70) | DRG 637 ==
LOC: ED 10:38 → EDHOLD 12:37 → 4E 12:37
PROVIDERS: Nurse Practitioner Family; Student in an Organized Health Care Education/Training Program; ADMIT Student in an Organized Health Care Education/Training Program; ATTEND Student in an Organized Health Care Education/Training Program
PROC: 0HBRXZZ Excision of Toe Nail, External Approach (ICD-10-PCS; principal; 2019-11-02)
DX: E11.65 Type 2 diabetes mellitus with hyperglycemia (principal); N17.0 Acute kidney failure with tubular necrosis; E44.1 Mild protein-calorie malnutrition; B37.49 Other urogenital candidiasis; E87.1 Hypo-osmolality and hyponatremia; E11.41 Type 2 diabetes mellitus with diabetic mononeuropathy; D64.9 Anemia, unspecified; K76.0 Fatty (change of) liver, not elsewhere classified; N18.3 Chronic kidney disease, stage 3 (moderate); R29.6 Repeated falls; F41.1 Generalized anxiety disorder; E66.01 Morbid (severe) obesity due to excess calories; F32.9 Major depressive disorder, single episode, unspecified; I12.9 Hypertensive chronic kidney disease with stage 1 through stage 4 chronic kidney disease, or unspecified chronic kidney disease; E11.22 Type 2 diabetes mellitus with diabetic chronic kidney disease; E83.39 Other disorders of phosphorus metabolism; E78.1 Pure hyperglyceridemia; B35.1 Tinea unguium; E11.42 Type 2 diabetes mellitus with diabetic polyneuropathy; Z20.828 Contact with and (suspected) exposure to other viral communicable diseases; E87.8 Other disorders of electrolyte and fluid balance, not elsewhere classified; S90.122A Contusion of left lesser toe(s) without damage to nail, initial encounter; W18.30XA Fall on same level, unspecified, initial encounter; R74.8 Abnormal levels of other serum enzymes; Y93.89 Activity, other specified; Y99.8 Other external cause status; Z79.4 Long term (current) use of insulin; Z88.5 Allergy status to narcotic agent; Z88.1 Allergy status to other antibiotic agents; Y92.030 Kitchen in apartment as the place of occurrence of the external cause; Z90.49 Acquired absence of other specified parts of digestive tract; Z90.710 Acquired absence of both cervix and uterus; Z83.3 Family history of diabetes mellitus; Z80.1 Family history of malignant neoplasm of trachea, bronchus and lung; Z82.49 Family history of ischemic heart disease and other diseases of the circulatory system; Z79.899 Other long term (current) drug therapy; Z68.32 Body mass index [BMI] 32.0-32.9, adult

== ENCOUNTER 2020-05-01 05:07 | Inpatient (IN) | payer OTHER ==
[~2020-05-01] VITALS: Ht 162.5 cm; Wt 87.6 kg
[2020-05-01] VITALS (8 sets, daily range): BP systolic 134–162; BP diastolic 58–87
[~2020-05-01 05:07] MED LIST changes: +ATORVASTATIN CA80 M1 PO; +Humalog SQ; +LANTUS SOL100 UNIT/1 SC; +Lantus SC; +Lopressor25 MG PO; +MIRTAZAPINE15 M2 PO; +QUETIAPINE FUM300 M1 PO; +TRADJENTA5 M1 PO; +VICTOZA 2-0.6 MG/0.1 SQ; +VICTOZA 3-0.6 MG/0.1 SC; -VICTOZA 3-PAK6 MG/ML SC
[2020-05-01 05:44] LABS: CREATININE 1.54 mg/dL (0.55-1.02); POTASSIUM 4.8 mmol/L (3.5-5.1)
[2020-05-01 06:04] LABS: BASO % 0.3 % (0.0-1.0); EOS % 0.6 % (1.0-4.0); HEMATOCRIT 33.2 % (37.0-47.0); LYMPH # 0.5 10*3/uL (1.3-4.4); LYMPH % 7.3 % (27.0-41.0); MEAN CELL VOLUME 80.2 fl (81.0-99.0); MEAN CORPUSCULAR HGB 26.1 pg (27.0-31.0); MEAN CORPUSCULAR HGB CONC 32.5 g/dl (33.0-37.0); MEAN PLATELET VOLUME 12.2 fl (9.6-12.3); MONO # 0.5 10*3/uL (0.1-1.0); MONO % 7.3 % (3.0-9.0); NEUT # 5.8 10*3/uL (2.3-7.9); NEUT % 84.2 % (47.0-73.0); PLATELET COUNT AUTOMATED 153 10*3/uL (130-400); RED BLOOD COUNT 4.14 10*6/uL (4.10-5.10); RED CELL DISTRI WIDTH 14.4 % (0-14.5); WHITE BLOOD COUNT 6.8 10*3/uL (4.8-10.8)
[2020-05-01 06:11] LABS: BILIRUBIN Negative (Negative); BLOOD Negative (Negative); CLARITY Clear (Clear); COLOR Yellow (Yellow); GLUCOSE 3+ (Negative); KETONE 1+ (Negative); LEUKO ESTERASE Negative (Negative); NITRITE Negative (Negative); SPECIFIC GRAVITY 1.025 (1.001-1.030); UROBILINOGEN 0.2 E.U./dl (0.0-1.0)
[2020-05-01 06:26] LABS: BACTERIA TRACE
[2020-05-01] MEDS ORDERED: NOVOLOG FL100 UNIT/2 SC (09:05)
[2020-05-01] MEDS ORDERED: LIPITOR40 MG PO (09:06)
[2020-05-01] MEDS ORDERED: MAGNESIUM250 M1 PO (09:07)
[2020-05-01] MEDS ORDERED: ATORVASTATIN CA80 M1 PO (10:00)
[2020-05-01 14:33] LABS: ALBUMIN 3.6 gm/dl (3.1-4.5); CREATININE 1.25 mg/dL (0.55-1.02); TOTAL PROTEIN 7.4 gm/dL (6.4-8.2)
[2020-05-01 14:34] LABS: POTASSIUM 3.8 mmol/L (3.5-5.1)
[2020-05-02] VITALS: BP 141/64
[2020-05-02 06:27] LABS: BASO % 0.3 % (0.0-1.0); EOS # 0.3 10*3/uL (0.0-0.4); EOS % 4.4 % (1.0-4.0); HEMATOCRIT 32.1 % (37.0-47.0); LYMPH # 1.5 10*3/uL (1.3-4.4); LYMPH % 25.5 % (27.0-41.0); MEAN CELL VOLUME 80.5 fl (81.0-99.0); MEAN CORPUSCULAR HGB 25.3 pg (27.0-31.0); MEAN CORPUSCULAR HGB CONC 31.5 g/dl (33.0-37.0); MEAN PLATELET VOLUME 11.5 fl (9.6-12.3); MONO # 0.5 10*3/uL (0.1-1.0); MONO % 8.7 % (3.0-9.0); NEUT # 3.5 10*3/uL (2.3-7.9); NEUT % 60.6 % (47.0-73.0); PLATELET COUNT AUTOMATED 158 10*3/uL (130-400); RED BLOOD COUNT 3.99 10*6/uL (4.10-5.10); RED CELL DISTRI WIDTH 14.6 % (0-14.5); WHITE BLOOD COUNT 5.7 10*3/uL (4.8-10.8)
[2020-05-02 06:51] LABS: ALBUMIN 3.3 gm/dl (3.1-4.5); ALKALINE PHOSPHATASE 107 U/L (45-117); BUN 19 mg/dl (7-24); CHLORIDE 104 mmol/L (98-107); CREATININE 0.95 mg/dL (0.55-1.02); FREE T4 0.76 ng/dl (0.76-1.46); POTASSIUM 3.6 mmol/L (3.5-5.1); SGOT/AST 15 IU/L (3-35); SGPT/ALT 21 U/L (12-78); SODIUM 139 mmol/L (136-145); TOTAL PROTEIN 7.1 gm/dL (6.4-8.2)
[2020-05-02 07:21] LABS: VITAMIN D, 25-HYDROXY 27.9 ng/mL (30-100)
[2020-05-02 08:00] VITALS: BP 124/70
[2020-05-02 11:45] VITALS: BP 120/78
[2020-05-02 16:00] VITALS: BP 162/75
[2020-05-02 20:00] VITALS: BP 138/64
[2020-05-03] VITALS: BP 143/55
[2020-05-03 06:12] LABS: BUN 17 mg/dl (7-24); CHLORIDE 105 mmol/L (98-107); CREATININE 0.97 mg/dL (0.55-1.02); POTASSIUM 3.8 mmol/L (3.5-5.1); SODIUM 138 mmol/L (136-145)
[2020-05-03 06:18] LABS: BASO % 0.8 % (0.0-1.0); EOS # 0.2 10*3/uL (0.0-0.4); EOS % 4.2 % (1.0-4.0); HEMATOCRIT 30.7 % (37.0-47.0); LYMPH # 1.6 10*3/uL (1.3-4.4); LYMPH % 30.4 % (27.0-41.0); MEAN CELL VOLUME 80.6 fl (81.0-99.0); MEAN CORPUSCULAR HGB 25.2 pg (27.0-31.0); MEAN CORPUSCULAR HGB CONC 31.3 g/dl (33.0-37.0); MEAN PLATELET VOLUME 11.2 fl (9.6-12.3); MONO # 0.6 10*3/uL (0.1-1.0); NEUT # 2.8 10*3/uL (2.3-7.9); NEUT % 52.8 % (47.0-73.0); PLATELET COUNT AUTOMATED 156 10*3/uL (130-400); RED BLOOD COUNT 3.81 10*6/uL (4.10-5.10); RED CELL DISTRI WIDTH 14.3 % (0-14.5); WHITE BLOOD COUNT 5.3 10*3/uL (4.8-10.8)
[2020-05-03 08:00] VITALS: BP 137/98
[2020-05-03] MEDS ORDERED: KLONOPIN2 M1 PO (11:33)
[2020-05-03 12:00] VITALS: BP 147/51
== END 2020-05-03 13:42 | DRG 637 ==
LOC: ED 05:07 → EDHOLD 08:33 → 5E 08:33
PROVIDERS: Internal Medicine; ADMIT Emergency Medicine; ATTEND Emergency Medicine
DX: E11.65 Type 2 diabetes mellitus with hyperglycemia (principal); N17.0 Acute kidney failure with tubular necrosis; E87.1 Hypo-osmolality and hyponatremia; F33.3 Major depressive disorder, recurrent, severe with psychotic symptoms; E87.8 Other disorders of electrolyte and fluid balance, not elsewhere classified; K76.0 Fatty (change of) liver, not elsewhere classified; E66.01 Morbid (severe) obesity due to excess calories; N18.30 Chronic kidney disease, stage 3 unspecified; D64.9 Anemia, unspecified; R29.6 Repeated falls; E78.1 Pure hyperglyceridemia; F41.1 Generalized anxiety disorder; E11.49 Type 2 diabetes mellitus with other diabetic neurological complication; Z20.822 Contact with and (suspected) exposure to COVID-19; E11.22 Type 2 diabetes mellitus with diabetic chronic kidney disease; I12.9 Hypertensive chronic kidney disease with stage 1 through stage 4 chronic kidney disease, or unspecified chronic kidney disease; Z90.710 Acquired absence of both cervix and uterus; Z68.31 Body mass index [BMI] 31.0-31.9, adult; Z79.4 Long term (current) use of insulin; Z88.6 Allergy status to analgesic agent; Z88.1 Allergy status to other antibiotic agents; Z90.49 Acquired absence of other specified parts of digestive tract; Z83.3 Family history of diabetes mellitus; Z80.1 Family history of malignant neoplasm of trachea, bronchus and lung; Z78.9 Other specified health status

== ENCOUNTER 2020-07-29 07:20 | Emergency (ER) | payer OTHER ==
[~2020-07-29] VITALS: Ht 165.1 cm; Wt 83.9 kg
[~2020-07-29 07:20] MED LIST changes: +Carafate1 GM PO; +HYDROCODONE-AC1 EAC1 PO; +INVOKANA100 M1 PO; +LIPITOR40 MG PO; +MAGNESIUM250 M1 PO; +MECLIZINE HCL25 M2 PO; +NOVOLOG FL100 UNIT/2 SC
[2020-07-29 07:52] LABS: BASO % 0.5 % (0.0-1.0); EOS # 0.2 10*3/uL (0.0-0.4); EOS % 3.2 % (1.0-4.0); HEMATOCRIT 31.7 % (37.0-47.0); LYMPH # 1.1 10*3/uL (1.3-4.4); LYMPH % 17.1 % (27.0-41.0); MEAN CELL VOLUME 79.3 fl (81.0-99.0); MEAN CORPUSCULAR HGB 25.5 pg (27.0-31.0); MEAN CORPUSCULAR HGB CONC 32.2 g/dl (33.0-37.0); MEAN PLATELET VOLUME 10.1 fl (9.6-12.3); MONO # 0.7 10*3/uL (0.1-1.0); MONO % 10.8 % (3.0-9.0); NEUT # 4.3 10*3/uL (2.3-7.9); NEUT % 66.1 % (47.0-73.0); PLATELET COUNT AUTOMATED 252 10*3/uL (130-400); RED CELL DISTRI WIDTH 14.2 % (0-14.5); WHITE BLOOD COUNT 6.6 10*3/uL (4.8-10.8)
[2020-07-29 08:06] LABS: ALBUMIN 3.1 gm/dl (3.1-4.5); CREATININE 1.43 mg/dL (0.55-1.02); POTASSIUM 3.8 mmol/L (3.5-5.1); TOTAL PROTEIN 7.6 gm/dL (6.4-8.2)
[2020-07-29] MEDS ORDERED: PROTONIX40 MG PO (09:48)
[2020-07-29] MEDS ORDERED: DOXYCYCLINE100 M3 PO (09:48)
== END 2020-07-29 10:49 | disposition home or self-care (01) ==
LOC: ED 07:20
PROVIDERS: Family Medicine
DX: J40 Bronchitis, not specified as acute or chronic (principal); K21.9 Gastro-esophageal reflux disease without esophagitis; R05 Cough; Z88.5 Allergy status to narcotic agent; Z88.8 Allergy status to other drugs, medicaments and biological substances; Z79.899 Other long term (current) drug therapy

== ENCOUNTER 2020-11-23 10:18 | Inpatient (IN) | payer OTHER ==
[~2020-11-23] VITALS: Ht 160 cm; Wt 80.0 kg
[~2020-11-23 10:18] MED LIST changes: +DOXYCYCLINE100 M3 PO
[2020-11-23 10:52] VITALS: BP 165/87
[2020-11-23 11:22] VITALS: BP 161/76
[2020-11-23 11:49] LABS: BASO % 0.7 % (0.0-1.0); EOS # 0.2 10*3/uL (0.0-0.4); EOS % 4.4 % (1.0-4.0); HEMATOCRIT 33.5 % (37.0-47.0); LYMPH # 1.1 10*3/uL (1.3-4.4); LYMPH % 23.1 % (27.0-41.0); MEAN CELL VOLUME 76.8 fl (81.0-99.0); MEAN CORPUSCULAR HGB 24.1 pg (27.0-31.0); MEAN CORPUSCULAR HGB CONC 31.3 g/dl (33.0-37.0); MEAN PLATELET VOLUME 9.9 fl (9.6-12.3); MONO # 0.4 10*3/uL (0.1-1.0); MONO % 8.8 % (3.0-9.0); NEUT # 2.8 10*3/uL (2.3-7.9); NEUT % 62.3 % (47.0-73.0); PLATELET COUNT AUTOMATED 146 10*3/uL (130-400); RED BLOOD COUNT 4.36 10*6/uL (4.10-5.10); RED CELL DISTRI WIDTH 13.9 % (0-14.5); WHITE BLOOD COUNT 4.5 10*3/uL (4.8-10.8)
[2020-11-23 12:01] LABS: ACT PARTIAL THROMBO TIME 24.5 SECONDS (20.0-32.1)
[2020-11-23 12:05] LABS: ALBUMIN 3.5 gm/dl (3.1-4.5); ALKALINE PHOSPHATASE 153 U/L (45-117); BUN 17 mg/dl (7-24); CHLORIDE 98 mmol/L (98-107); CREATININE 1.15 mg/dL (0.55-1.02); LIPASE 104 U/L (73-393); POTASSIUM 4.5 mmol/L (3.5-5.1); SGOT/AST 17 IU/L (3-35); SGPT/ALT 24 U/L (12-78); SODIUM 132 mmol/L (136-145); TOTAL PROTEIN 7.6 gm/dL (6.4-8.2)
[2020-11-23 12:09] LABS: TROPONIN I < 0.015 ng/ml (<0.045)
[2020-11-23 12:46] LABS: BILIRUBIN Negative (Negative); BLOOD Negative (Negative); CLARITY Clear (Clear); COLOR Yellow (Yellow); GLUCOSE 1+ (Negative); KETONE Negative (Negative); LEUKO ESTERASE Negative (Negative); NITRITE Negative (Negative); PH 5.5 (4.5-8.0); UROBILINOGEN 0.2 E.U./dl (0.0-1.0)
[2020-11-23 12:59] LABS: BACTERIA TRACE
[2020-11-23 13:45] VITALS: BP 131/50
[2020-11-23 15:27] VITALS: BP 145/58
[2020-11-23] MEDS ORDERED: MAGNESIUM250 M1 PO (18:44)
[2020-11-23] MEDS ORDERED: TRADJENTA5 M1 PO (18:45)
[2020-11-23] MEDS ORDERED: QUETIAPINE FUM300 M1 PO (18:46)
[2020-11-23 19:30] VITALS: BP 154/55
[2020-11-23 22:07] VITALS: BP 150/48
[2020-11-24 00:14] VITALS: BP 157/52
[2020-11-24 04:00] VITALS: BP 148/57
[2020-11-24 06:50] LABS: BASO % 0.7 % (0.0-1.0); EOS # 0.2 10*3/uL (0.0-0.4); HEMATOCRIT 32.8 % (37.0-47.0); LYMPH # 1.2 10*3/uL (1.3-4.4); LYMPH % 27.3 % (27.0-41.0); MEAN CELL VOLUME 75.9 fl (81.0-99.0); MEAN CORPUSCULAR HGB 23.8 pg (27.0-31.0); MEAN CORPUSCULAR HGB CONC 31.4 g/dl (33.0-37.0); MEAN PLATELET VOLUME 10.7 fl (9.6-12.3); MONO # 0.5 10*3/uL (0.1-1.0); NEUT # 2.4 10*3/uL (2.3-7.9); NEUT % 54.5 % (47.0-73.0); PLATELET COUNT AUTOMATED 164 10*3/uL (130-400); RED BLOOD COUNT 4.32 10*6/uL (4.10-5.10); RED CELL DISTRI WIDTH 13.8 % (0-14.5); WHITE BLOOD COUNT 4.4 10*3/uL (4.8-10.8)
[2020-11-24 07:19] LABS: ALBUMIN 3.3 gm/dl (3.1-4.5); ALKALINE PHOSPHATASE 143 U/L (45-117); BUN 17 mg/dl (7-24); CHLORIDE 99 mmol/L (98-107); CREATININE 0.99 mg/dL (0.55-1.02); POTASSIUM 4.3 mmol/L (3.5-5.1); SGOT/AST 17 IU/L (3-35); SGPT/ALT 23 U/L (12-78); SODIUM 135 mmol/L (136-145); TOTAL PROTEIN 7.1 gm/dL (6.4-8.2)
[2020-11-30] MEDS ORDERED: AMLODIPINE BESY10 MG PO (15:37)
[2020-11-30] MEDS ORDERED: MAGNESIUM250 M1 PO (15:37)
[2020-11-30] MEDS ORDERED: TRADJENTA5 M1 PO (15:37)
[2020-11-30] MEDS ORDERED: ZESTRIL40 MG PO (15:37)
[2020-11-30] MEDS ORDERED: LASIX40 MG PO (15:38)
[2020-11-30] MEDS ORDERED: Lopressor25 MG PO (15:38)
[2020-11-30] MEDS ORDERED: PROTONIX40 MG PO (15:39)
[2020-11-30] MEDS ORDERED: METFORMIN HYD1000 MG PO (15:39)
[2020-11-30] MEDS ORDERED: SEROQUEL300 MG PO (15:40)
[2020-11-30] MEDS ORDERED: LIPITOR40 MG PO (15:40)
[2020-12-01] MEDS ORDERED: ZESTRIL40 MG PO (15:08)
[2020-12-01] MEDS ORDERED: NOVOLOG100 UNIT/1 SC (15:08)
[2020-12-01] MEDS ORDERED: Lopressor25 MG PO (15:08)
[2020-12-01] MEDS ORDERED: LANTUS SOL100 UNIT/1 SC (15:08)
[2020-12-01] MEDS ORDERED: VICTOZA 3-0.6 MG/0.1 SQ (15:08)
[2020-12-01] MEDS ORDERED: AMLODIPINE BESY10 MG PO (15:08)
[2020-12-01] MEDS ORDERED: INVOKANA100 M1 PO (15:08)
== END 2020-11-24 16:19 | disposition home or self-care (01) | DRG 309 ==
LOC: ED 10:18 → EDHOLD 16:47
PROVIDERS: Emergency Medicine; Student in an Organized Health Care Education/Training Program; ADMIT Internal Medicine; ATTEND Internal Medicine
DX: R00.2 Palpitations (principal); E44.1 Mild protein-calorie malnutrition; I12.9 Hypertensive chronic kidney disease with stage 1 through stage 4 chronic kidney disease, or unspecified chronic kidney disease; E11.22 Type 2 diabetes mellitus with diabetic chronic kidney disease; N18.32 Chronic kidney disease, stage 3b; R26.81 Unsteadiness on feet; R25.1 Tremor, unspecified; F41.9 Anxiety disorder, unspecified; E78.00 Pure hypercholesterolemia, unspecified; G47.00 Insomnia, unspecified; E11.49 Type 2 diabetes mellitus with other diabetic neurological complication; E55.9 Vitamin D deficiency, unspecified; E11.65 Type 2 diabetes mellitus with hyperglycemia; K21.9 Gastro-esophageal reflux disease without esophagitis; Z88.5 Allergy status to narcotic agent; Z88.1 Allergy status to other antibiotic agents; Z90.49 Acquired absence of other specified parts of digestive tract; Z90.710 Acquired absence of both cervix and uterus; Z80.1 Family history of malignant neoplasm of trachea, bronchus and lung; Z79.4 Long term (current) use of insulin; Z83.3 Family history of diabetes mellitus; Z68.31 Body mass index [BMI] 31.0-31.9, adult

== ENCOUNTER 2021-01-13 07:51 | Inpatient (IN) | payer OTHER ==
[2021-01-13] VITALS (14 sets, daily range): BP systolic 128–193; BP diastolic 67–97
[~2021-01-13] VITALS: Ht 162.5 cm; Wt 79.1 kg
[~2021-01-13 07:51] MED LIST changes: +METFORMIN HYD1000 MG PO; +NOVOLOG100 UNIT/1 SC; +VICTOZA 3-0.6 MG/0.1 SQ; +ZESTRIL40 MG PO
[2021-01-13 08:16] LABS: BASO % 0.4 % (0.0-1.0); EOS # 0.2 10*3/uL (0.0-0.4); EOS % 2.5 % (1.0-4.0); HEMATOCRIT 34.1 % (37.0-47.0); LYMPH # 0.8 10*3/uL (1.3-4.4); LYMPH % 9.5 % (27.0-41.0); MEAN CELL VOLUME 78.2 fl (81.0-99.0); MEAN CORPUSCULAR HGB 24.5 pg (27.0-31.0); MEAN CORPUSCULAR HGB CONC 31.4 g/dl (33.0-37.0); MEAN PLATELET VOLUME 10.8 fl (9.6-12.3); MONO # 0.6 10*3/uL (0.1-1.0); MONO % 7.1 % (3.0-9.0); NEUT # 6.8 10*3/uL (2.3-7.9); NEUT % 79.7 % (47.0-73.0); PLATELET COUNT AUTOMATED 265 10*3/uL (130-400); RED BLOOD COUNT 4.36 10*6/uL (4.10-5.10); RED CELL DISTRI WIDTH 14.3 % (0-14.5); WHITE BLOOD COUNT 8.6 10*3/uL (4.8-10.8)
[2021-01-13 08:34] LABS: ALBUMIN 3.3 gm/dl (3.1-4.5); CREATININE 1.53 mg/dL (0.55-1.02); POTASSIUM 5.3 mmol/L (3.5-5.1); TOTAL PROTEIN 8.4 gm/dL (6.4-8.2)
[2021-01-13 09:08] LABS: ARTERIAL BLOOD GAS PH 7.285 (7.35-7.45); ARTERIAL BLOOD GAS PO2 92.1 (80-90)
[2021-01-13 09:11] LABS: BILIRUBIN Negative (Negative); BLOOD 3+ (Negative); CLARITY Cloudy (Clear); COLOR Yellow (Yellow); GLUCOSE 3+ (Negative); KETONE 4+ (Negative); LEUKO ESTERASE Trace (Negative); NITRITE Negative (Negative); SPECIFIC GRAVITY >= 1.030 (1.001-1.030); UROBILINOGEN 0.2 E.U./dl (0.0-1.0)
[2021-01-13 09:48] LABS: RBC TNTC rbc/hpf (0-2)
[2021-01-13 09:49] LABS: BACTERIA 1+
[2021-01-13 13:06] LABS: CREATININE 1.3 mg/dL (0.55-1.02)
[2021-01-13 13:07] LABS: POTASSIUM 4.1 mmol/L (3.5-5.1)
[2021-01-13] MEDS ORDERED: KLONOPIN2 M1 PO (13:23)
[2021-01-13 16:21] LABS: CREATININE 1.13 mg/dL (0.55-1.02); POTASSIUM 4.8 mmol/L (3.5-5.1)
[2021-01-13 20:32] LABS: BUN 28 mg/dl (7-24); CHLORIDE 98 mmol/L (98-107); CREATININE 1.04 mg/dL (0.55-1.02); POTASSIUM 4.6 mmol/L (3.5-5.1); SODIUM 130 mmol/L (136-145)
[2021-01-14 00:39] LABS: BUN 27 mg/dl (7-24); CHLORIDE 101 mmol/L (98-107); CREATININE 0.99 mg/dL (0.55-1.02); POTASSIUM 4.1 mmol/L (3.5-5.1); SODIUM 133 mmol/L (136-145)
[2021-01-14 04:00] VITALS: BP 111/84
[2021-01-14 05:05] LABS: BUN 24 mg/dl (7-24); CHLORIDE 104 mmol/L (98-107); CREATININE 0.88 mg/dL (0.55-1.02); POTASSIUM 4.2 mmol/L (3.5-5.1); SODIUM 135 mmol/L (136-145)
[2021-01-14 05:08] LABS: CHOLESTEROL 90 mg/dL (<200); LDL CHOLESTEROL 17 mg/dL (9-159); TRIGLYCERIDES 211 mg/dl (<150)
[2021-01-14 06:35] LABS: BASO % 0.4 % (0.0-1.0); EOS # 0.1 10*3/uL (0.0-0.4); EOS % 2.6 % (1.0-4.0); HEMATOCRIT 26.5 % (37.0-47.0); LYMPH # 0.8 10*3/uL (1.3-4.4); LYMPH % 14.8 % (27.0-41.0); MEAN CELL VOLUME 75.9 fl (81.0-99.0); MEAN CORPUSCULAR HGB 25.2 pg (27.0-31.0); MEAN CORPUSCULAR HGB CONC 33.2 g/dl (33.0-37.0); MEAN PLATELET VOLUME 10.2 fl (9.6-12.3); MONO # 0.8 10*3/uL (0.1-1.0); MONO % 14.8 % (3.0-9.0); NEUT # 3.6 10*3/uL (2.3-7.9); NEUT % 66.7 % (47.0-73.0); RED BLOOD COUNT 3.49 10*6/uL (4.10-5.10); RED CELL DISTRI WIDTH 14.5 % (0-14.5); WHITE BLOOD COUNT 5.4 10*3/uL (4.8-10.8)
[2021-01-14 06:58] LABS: PLATELET COUNT AUTOMATED 161 10*3/uL (130-400)
[2021-01-14 08:21] VITALS: BP 155/68
[2021-01-14 12:00] VITALS: BP 140/56
[2021-01-14 16:00] VITALS: BP 150/60
[2021-01-14 20:00] VITALS: BP 164/67
[2021-01-15] VITALS: BP 132/48
[2021-01-15 06:20] LABS: BUN 27 mg/dl (7-24); CHLORIDE 104 mmol/L (98-107); CREATININE 0.84 mg/dL (0.55-1.02); POTASSIUM 3.9 mmol/L (3.5-5.1); SODIUM 135 mmol/L (136-145)
[2021-01-15 06:33] LABS: BASO % 0.4 % (0.0-1.0); EOS # 0.2 10*3/uL (0.0-0.4); EOS % 4.2 % (1.0-4.0); HEMATOCRIT 27.7 % (37.0-47.0); LYMPH # 0.8 10*3/uL (1.3-4.4); LYMPH % 17.9 % (27.0-41.0); MEAN CELL VOLUME 77.2 fl (81.0-99.0); MEAN CORPUSCULAR HGB 24.8 pg (27.0-31.0); MEAN CORPUSCULAR HGB CONC 32.1 g/dl (33.0-37.0); MEAN PLATELET VOLUME 10.7 fl (9.6-12.3); MONO # 0.6 10*3/uL (0.1-1.0); MONO % 12.9 % (3.0-9.0); NEUT # 2.9 10*3/uL (2.3-7.9); NEUT % 63.3 % (47.0-73.0); PLATELET COUNT AUTOMATED 153 10*3/uL (130-400); RED BLOOD COUNT 3.59 10*6/uL (4.10-5.10); RED CELL DISTRI WIDTH 14.4 % (0-14.5); WHITE BLOOD COUNT 4.6 10*3/uL (4.8-10.8)
[2021-01-15 08:00] VITALS: BP 152/68
[2021-01-15 12:00] VITALS: BP 158/54
[2021-01-15 16:00] VITALS: BP 152/52
[2021-01-15 20:00] VITALS: BP 149/67
[2021-01-16] VITALS: BP 138/52
[2021-01-16 06:18] LABS: BASO % 0.7 % (0.0-1.0); EOS # 0.2 10*3/uL (0.0-0.4); EOS % 3.1 % (1.0-4.0); HEMATOCRIT 28.1 % (37.0-47.0); LYMPH % 16.3 % (27.0-41.0); MEAN CELL VOLUME 76.4 fl (81.0-99.0); MEAN CORPUSCULAR HGB 24.7 pg (27.0-31.0); MEAN CORPUSCULAR HGB CONC 32.4 g/dl (33.0-37.0); MEAN PLATELET VOLUME 10.5 fl (9.6-12.3); MONO # 0.8 10*3/uL (0.1-1.0); MONO % 12.9 % (3.0-9.0); NEUT # 3.8 10*3/uL (2.3-7.9); NEUT % 65.3 % (47.0-73.0); PLATELET COUNT AUTOMATED 173 10*3/uL (130-400); RED BLOOD COUNT 3.68 10*6/uL (4.10-5.10); RED CELL DISTRI WIDTH 14.5 % (0-14.5); WHITE BLOOD COUNT 5.9 10*3/uL (4.8-10.8)
[2021-01-16 06:29] LABS: BUN 18 mg/dl (7-24); CHLORIDE 103 mmol/L (98-107); CREATININE 0.67 mg/dL (0.55-1.02); POTASSIUM 3.8 mmol/L (3.5-5.1); SODIUM 135 mmol/L (136-145)
[2021-01-16 08:00] VITALS: BP 174/57
[2021-01-16 12:00] VITALS: BP 178/60
[2021-01-16 16:00] VITALS: BP 154/64
[2021-01-16 20:00] VITALS: BP 142/72
[2021-01-17] VITALS: BP 151/49
[2021-01-17 08:00] VITALS: BP 154/56
[2021-01-17] MEDS ORDERED: CIPRO500 MG PO (10:40)
[2021-01-17] MEDS ORDERED: NEUTRA PHOS K PO (10:40)
[2021-01-17] MEDS ORDERED: Lantus SC (10:44)
[2021-01-17] MEDS ORDERED: MECLIZINE HCL25 M2 PO (10:44)
[2021-01-17] MEDS ORDERED: LANTUS SOL100 UNIT/1 SC (10:44)
[2021-01-17 12:00] VITALS: BP 138/48
[2021-01-17 15:58] VITALS: BP 150/52
[2021-01-18] VITALS: BP 145/67
[2021-01-18 08:00] VITALS: BP 182/62
== END 2021-01-18 12:52 | disposition home health service (06) | DRG 637 ==
LOC: ED 07:51 → 4E 09:04 → EDHOLD 09:04 → ICCU 20:33 → 4E 01-14 14:27
PROVIDERS: Emergency Medicine; Internal Medicine; ADMIT Emergency Medicine; ATTEND Emergency Medicine
DX: E11.10 Type 2 diabetes mellitus with ketoacidosis without coma (principal); N17.0 Acute kidney failure with tubular necrosis; E87.1 Hypo-osmolality and hyponatremia; N30.01 Acute cystitis with hematuria; I12.0 Hypertensive chronic kidney disease with stage 5 chronic kidney disease or end stage renal disease; N18.30 Chronic kidney disease, stage 3 unspecified; K21.9 Gastro-esophageal reflux disease without esophagitis; K59.00 Constipation, unspecified; D50.9 Iron deficiency anemia, unspecified; E11.22 Type 2 diabetes mellitus with diabetic chronic kidney disease; E11.65 Type 2 diabetes mellitus with hyperglycemia; E83.52 Hypercalcemia; E87.8 Other disorders of electrolyte and fluid balance, not elsewhere classified; F41.1 Generalized anxiety disorder; E66.9 Obesity, unspecified; E83.39 Other disorders of phosphorus metabolism; Z88.5 Allergy status to narcotic agent; Z88.1 Allergy status to other antibiotic agents; Z79.899 Other long term (current) drug therapy; Z79.4 Long term (current) use of insulin; Z90.49 Acquired absence of other specified parts of digestive tract; Z90.710 Acquired absence of both cervix and uterus; Z83.3 Family history of diabetes mellitus; Z80.1 Family history of malignant neoplasm of trachea, bronchus and lung; Z68.29 Body mass index [BMI] 29.0-29.9, adult; Z91.14 Patient's other noncompliance with medication regimen

== ENCOUNTER 2021-03-10 09:02 | Inpatient (IN) | payer OTHER ==
[~2021-03-10] VITALS: Ht 162.5 cm; Wt 84.0 kg
[~2021-03-10 09:02] MED LIST changes: +CIPRO500 MG PO; +NEUTRA PHOS K PO
[2021-03-10 09:06] VITALS: BP 158/88
[2021-03-10 09:28] LABS: BASO % 0.3 % (0.0-1.0); EOS # 0.2 10*3/uL (0.0-0.4); EOS % 2.3 % (1.0-4.0); LYMPH # 0.5 10*3/uL (1.3-4.4); LYMPH % 7.5 % (27.0-41.0); MEAN CELL VOLUME 77.8 fl (81.0-99.0); MEAN CORPUSCULAR HGB 24.2 pg (27.0-31.0); MEAN CORPUSCULAR HGB CONC 31.1 g/dl (33.0-37.0); MEAN PLATELET VOLUME 10.5 fl (9.6-12.3); MONO # 0.5 10*3/uL (0.1-1.0); MONO % 7.1 % (3.0-9.0); NEUT # 5.8 10*3/uL (2.3-7.9); NEUT % 82.1 % (47.0-73.0); PLATELET COUNT AUTOMATED 192 10*3/uL (130-400); RED CELL DISTRI WIDTH 13.9 % (0-14.5)
[2021-03-10 09:40] LABS: ACT PARTIAL THROMBO TIME 23.7 SECONDS (20.0-32.1); INTERNATIONAL NORM RATIO 1.1 (2.0-3.5)
[2021-03-10 09:49] LABS: ALBUMIN 2.6 gm/dl (3.1-4.5); CREATININE 1.16 mg/dL (0.55-1.02); POTASSIUM 4.5 mmol/L (3.5-5.1); TOTAL PROTEIN 7.3 gm/dL (6.4-8.2)
[2021-03-10 10:20] LABS: BILIRUBIN Negative (Negative); BLOOD Negative (Negative); CLARITY Clear (Clear); COLOR Yellow (Yellow); GLUCOSE 2+ (Negative); KETONE Negative (Negative); LEUKO ESTERASE Negative (Negative); NITRITE Negative (Negative); PH 5.5 (4.5-8.0); SPECIFIC GRAVITY 1.015 (1.001-1.030); UROBILINOGEN 0.2 E.U./dl (0.0-1.0)
[2021-03-10 10:39] LABS: BACTERIA 1+
[2021-03-10] MEDS ORDERED: REMERON15 M2 PO (13:11)
[2021-03-10] MEDS ORDERED: HUMALOG100 UNIT/2 SQ (13:14)
[2021-03-10] MEDS ORDERED: JANUVIA100 MG PO (13:16)
[2021-03-10] MEDS ORDERED: MAGNESIUM OXID400 MG PO (13:18)
[2021-03-10] MEDS ORDERED: VICTOZA 2-0.6 MG/0.1 SQ (13:43)
[2021-03-10 17:15] VITALS: BP 141/56
[2021-03-10 17:46] LABS: CREATININE 1.12 mg/dL (0.55-1.02); POTASSIUM 4.6 mmol/L (3.5-5.1)
[2021-03-10 17:51] VITALS: BP 161/82
== END 2021-03-10 19:12 | disposition home health service (06) | DRG 638 ==
LOC: ED 09:02 → EDHOLD 11:48 → 5E 16:09
PROVIDERS: Emergency Medicine; Internal Medicine; ADMIT Family Medicine; ATTEND Family Medicine
DX: E11.65 Type 2 diabetes mellitus with hyperglycemia (principal); E44.0 Moderate protein-calorie malnutrition; E87.1 Hypo-osmolality and hyponatremia; F32.A Depression, unspecified; F41.1 Generalized anxiety disorder; I10 Essential (primary) hypertension; R26.81 Unsteadiness on feet; E11.49 Type 2 diabetes mellitus with other diabetic neurological complication; R26.9 Unspecified abnormalities of gait and mobility; K21.9 Gastro-esophageal reflux disease without esophagitis; Z90.49 Acquired absence of other specified parts of digestive tract; Z83.3 Family history of diabetes mellitus; Z88.5 Allergy status to narcotic agent; Z90.710 Acquired absence of both cervix and uterus; Z88.1 Allergy status to other antibiotic agents; Z80.1 Family history of malignant neoplasm of trachea, bronchus and lung; Z79.4 Long term (current) use of insulin; Z79.899 Other long term (current) drug therapy; Z68.31 Body mass index [BMI] 31.0-31.9, adult

== ENCOUNTER 2021-03-11 22:31 | Emergency (ER) | payer OTHER ==
[~2021-03-11] VITALS: Ht 162.5 cm; Wt 82.1 kg
[~2021-03-11 22:31] MED LIST changes: +HUMALOG100 UNIT/2 SQ; +MAGNESIUM OXID400 MG PO; +REMERON15 M2 PO
[2021-03-11 22:57] LABS: BASO % 0.2 % (0.0-1.0); EOS # 0.2 10*3/uL (0.0-0.4); LYMPH # 0.5 10*3/uL (1.3-4.4); LYMPH % 10.1 % (27.0-41.0); MEAN CELL VOLUME 78.1 fl (81.0-99.0); MEAN CORPUSCULAR HGB 24.3 pg (27.0-31.0); MEAN CORPUSCULAR HGB CONC 31.2 g/dl (33.0-37.0); MEAN PLATELET VOLUME 10.7 fl (9.6-12.3); MONO # 0.3 10*3/uL (0.1-1.0); MONO % 5.4 % (3.0-9.0); NEUT # 4.3 10*3/uL (2.3-7.9); NEUT % 80.7 % (47.0-73.0); PLATELET COUNT AUTOMATED 164 10*3/uL (130-400); RED BLOOD COUNT 3.33 10*6/uL (4.10-5.10); RED CELL DISTRI WIDTH 14.1 % (0-14.5); WHITE BLOOD COUNT 5.3 10*3/uL (4.8-10.8)
[2021-03-11 23:19] LABS: ALBUMIN 2.4 gm/dl (3.1-4.5); ALKALINE PHOSPHATASE 131 U/L (45-117); BUN 19 mg/dl (7-24); CHLORIDE 101 mmol/L (98-107); CREATININE 1.09 mg/dL (0.55-1.02); POTASSIUM 4.1 mmol/L (3.5-5.1); SGOT/AST 25 IU/L (3-35); SODIUM 133 mmol/L (136-145); TOTAL PROTEIN 6.6 gm/dL (6.4-8.2)
[2021-03-11 23:24] LABS: SGPT/ALT 16 U/L (12-78)
[2021-03-12 00:48] LABS: BILIRUBIN Negative (Negative); BLOOD Negative (Negative); CLARITY Clear (Clear); COLOR Yellow (Yellow); GLUCOSE 3+ (Negative); KETONE Negative (Negative); LEUKO ESTERASE Negative (Negative); NITRITE Negative (Negative); PH 5.5 (4.5-8.0); SPECIFIC GRAVITY 1.015 (1.001-1.030); UROBILINOGEN 0.2 E.U./dl (0.0-1.0)
[2021-03-12 01:03] LABS: BACTERIA TRACE
[2021-03-12 01:39] LABS: ACETAMINOPHEN (TYLENOL) < 5.0 ug/ml (10-30); ETHYL ALCOHOL < 3.0 mg/dl (<3)
[2021-03-12 02:42] LABS: URINE AMPHETAMINES < 1000 (1000ng/ml); URINE BARBITURATES < 200 (200ng/ml); URINE BENZODIAZEPINES < 200 (200ng/ml); URINE CANNABINOIDS (THC) < 50 (50ng/ml); URINE COCAINE < 300 (300ng/ml); URINE METHADONE < 300 (300ng/ml); URINE OPIATES < 300 (300ng/ml)
[2021-03-12 02:47] LABS: URINE PHENCYCLIDINE < 25 (25ng/ml)
== END 2021-03-12 10:04 | disposition home or self-care (01) ==
LOC: ED 22:31
PROVIDERS: Internal Medicine
DX: E11.65 Type 2 diabetes mellitus with hyperglycemia (principal); R26.89 Other abnormalities of gait and mobility; K21.9 Gastro-esophageal reflux disease without esophagitis; I10 Essential (primary) hypertension; E03.9 Hypothyroidism, unspecified; Z88.1 Allergy status to other antibiotic agents; Z88.6 Allergy status to analgesic agent; Z79.899 Other long term (current) drug therapy; Z90.710 Acquired absence of both cervix and uterus; Z90.49 Acquired absence of other specified parts of digestive tract; Z98.890 Other specified postprocedural states

== ENCOUNTER 2021-03-14 14:58 | Inpatient (IN) | payer OTHER ==
[~2021-03-14] VITALS: Ht 162.5 cm; Wt 83.9 kg
[2021-03-14 15:01] VITALS: BP 138/50
[2021-03-14 15:23] LABS: BASO % 0.3 % (0.0-1.0); EOS # 0.3 10*3/uL (0.0-0.4); EOS % 3.5 % (1.0-4.0); HEMATOCRIT 28.4 % (37.0-47.0); LYMPH # 0.9 10*3/uL (1.3-4.4); LYMPH % 11.9 % (27.0-41.0); MEAN CELL VOLUME 76.3 fl (81.0-99.0); MEAN CORPUSCULAR HGB 23.7 pg (27.0-31.0); MEAN PLATELET VOLUME 10.2 fl (9.6-12.3); MONO # 0.7 10*3/uL (0.1-1.0); MONO % 9.1 % (3.0-9.0); NEUT # 5.4 10*3/uL (2.3-7.9); NEUT % 74.5 % (47.0-73.0); PLATELET COUNT AUTOMATED 193 10*3/uL (130-400); RED BLOOD COUNT 3.72 10*6/uL (4.10-5.10); RED CELL DISTRI WIDTH 14.1 % (0-14.5); WHITE BLOOD COUNT 7.2 10*3/uL (4.8-10.8)
[2021-03-14 15:40] LABS: ALBUMIN 2.8 gm/dl (3.1-4.5); CREATININE 1.33 mg/dL (0.55-1.02); POTASSIUM 4.4 mmol/L (3.5-5.1); TOTAL PROTEIN 7.3 gm/dL (6.4-8.2)
[2021-03-14 19:50] VITALS: BP 151/54
[2021-03-14 23:01] LABS: BILIRUBIN Negative (Negative); BLOOD 3+ (Negative); CLARITY Clear (Clear); COLOR Yellow (Yellow); GLUCOSE 2+ (Negative); KETONE Negative (Negative); LEUKO ESTERASE Negative (Negative); NITRITE Negative (Negative); PH 5.5 (4.5-8.0); SPECIFIC GRAVITY 1.015 (1.001-1.030); UROBILINOGEN 0.2 E.U./dl (0.0-1.0)
[2021-03-14 23:18] LABS: EPITHELIAL CELLS 16-20; YEAST 1+
[2021-03-14 23:19] LABS: BACTERIA 1+
[2021-03-15 07:17] LABS: THYROID STIM HORMONE (HS) 5.47 uIU/ml (0.358-4.75)
[2021-03-15 07:35] LABS: VITAMIN D, 25-HYDROXY 20.1 ng/mL (30-100)
[2021-03-15 08:00] VITALS: BP 159/76
[2021-03-15 20:00] VITALS: BP 145/72
[2021-03-16 08:00] VITALS: BP 140/76
[2021-03-16 20:00] VITALS: BP 160/62
[2021-03-16 22:00] VITALS: BP 150/64
[2021-03-17 06:36] VITALS: BP 170/62
[2021-03-17 06:38] LABS: BASO % 0.2 % (0.0-1.0); EOS # 0.3 10*3/uL (0.0-0.4); EOS % 3.6 % (1.0-4.0); HEMATOCRIT 29.5 % (37.0-47.0); LYMPH # 0.9 10*3/uL (1.3-4.4); LYMPH % 10.9 % (27.0-41.0); MEAN CELL VOLUME 77.8 fl (81.0-99.0); MEAN CORPUSCULAR HGB 24.5 pg (27.0-31.0); MEAN CORPUSCULAR HGB CONC 31.5 g/dl (33.0-37.0); MONO # 0.8 10*3/uL (0.1-1.0); MONO % 9.5 % (3.0-9.0); NEUT # 6.3 10*3/uL (2.3-7.9); NEUT % 75.3 % (47.0-73.0); PLATELET COUNT AUTOMATED 170 10*3/uL (130-400); RED BLOOD COUNT 3.79 10*6/uL (4.10-5.10); RED CELL DISTRI WIDTH 14.4 % (0-14.5); WHITE BLOOD COUNT 8.4 10*3/uL (4.8-10.8)
[2021-03-17 08:45] VITALS: BP 144/54
[2021-03-17 20:00] VITALS: BP 149/53
[2021-03-18 07:43] VITALS: BP 161/65
[2021-03-18 09:20] LABS: BASO % 0.3 % (0.0-1.0); EOS # 0.2 10*3/uL (0.0-0.4); EOS % 3.8 % (1.0-4.0); HEMATOCRIT 26.5 % (37.0-47.0); MEAN CELL VOLUME 76.8 fl (81.0-99.0); MEAN CORPUSCULAR HGB 23.5 pg (27.0-31.0); MEAN CORPUSCULAR HGB CONC 30.6 g/dl (33.0-37.0); MEAN PLATELET VOLUME 10.8 fl (9.6-12.3); MONO # 0.7 10*3/uL (0.1-1.0); MONO % 11.4 % (3.0-9.0); NEUT # 4.3 10*3/uL (2.3-7.9); NEUT % 68.2 % (47.0-73.0); PLATELET COUNT AUTOMATED 156 10*3/uL (130-400); RED BLOOD COUNT 3.45 10*6/uL (4.10-5.10); RED CELL DISTRI WIDTH 14.3 % (0-14.5); WHITE BLOOD COUNT 6.3 10*3/uL (4.8-10.8)
[2021-03-18 20:00] VITALS: BP 154/69
[2021-03-19 06:48] LABS: BASO % 0.2 % (0.0-1.0); EOS # 0.2 10*3/uL (0.0-0.4); EOS % 3.6 % (1.0-4.0); HEMATOCRIT 27.1 % (37.0-47.0); LYMPH # 0.8 10*3/uL (1.3-4.4); LYMPH % 14.2 % (27.0-41.0); MEAN CELL VOLUME 76.6 fl (81.0-99.0); MEAN CORPUSCULAR HGB 23.7 pg (27.0-31.0); MONO # 0.7 10*3/uL (0.1-1.0); MONO % 11.8 % (3.0-9.0); NEUT % 69.9 % (47.0-73.0); PLATELET COUNT AUTOMATED 158 10*3/uL (130-400); RED BLOOD COUNT 3.54 10*6/uL (4.10-5.10); RED CELL DISTRI WIDTH 14.3 % (0-14.5); WHITE BLOOD COUNT 5.8 10*3/uL (4.8-10.8)
[2021-03-19 07:55] VITALS: BP 178/64
[2021-03-19 08:30] VITALS: BP 148/61
[2021-03-19 20:00] VITALS: BP 155/65
[2021-03-20 08:00] VITALS: BP 179/54
[2021-03-20 20:00] VITALS: BP 171/64
[2021-03-21 07:00] LABS: BASO % 0.3 % (0.0-1.0); EOS # 0.2 10*3/uL (0.0-0.4); EOS % 3.2 % (1.0-4.0); HEMATOCRIT 25.4 % (37.0-47.0); LYMPH # 0.7 10*3/uL (1.3-4.4); LYMPH % 9.9 % (27.0-41.0); MEAN CELL VOLUME 77.4 fl (81.0-99.0); MEAN CORPUSCULAR HGB 23.8 pg (27.0-31.0); MEAN CORPUSCULAR HGB CONC 30.7 g/dl (33.0-37.0); MEAN PLATELET VOLUME 10.7 fl (9.6-12.3); MONO # 0.9 10*3/uL (0.1-1.0); MONO % 13.2 % (3.0-9.0); NEUT # 4.8 10*3/uL (2.3-7.9); NEUT % 72.8 % (47.0-73.0); PLATELET COUNT AUTOMATED 160 10*3/uL (130-400); RED BLOOD COUNT 3.28 10*6/uL (4.10-5.10); RED CELL DISTRI WIDTH 14.2 % (0-14.5); WHITE BLOOD COUNT 6.7 10*3/uL (4.8-10.8)
[2021-03-21 08:00] VITALS: BP 152/53
[2021-03-21 20:00] VITALS: BP 146/62
[2021-03-22 06:50] LABS: BUN 15 mg/dl (7-24); CHLORIDE 100 mmol/L (98-107); CREATININE 0.96 mg/dL (0.55-1.02); POTASSIUM 4.2 mmol/L (3.5-5.1); SODIUM 132 mmol/L (136-145)
[2021-03-22 07:03] LABS: BASO % 0.3 % (0.0-1.0); EOS # 0.2 10*3/uL (0.0-0.4); EOS % 3.8 % (1.0-4.0); HEMATOCRIT 25.8 % (37.0-47.0); LYMPH # 0.7 10*3/uL (1.3-4.4); LYMPH % 12.2 % (27.0-41.0); MEAN CELL VOLUME 76.6 fl (81.0-99.0); MEAN CORPUSCULAR HGB 23.7 pg (27.0-31.0); MEAN PLATELET VOLUME 10.8 fl (9.6-12.3); MONO # 0.8 10*3/uL (0.1-1.0); MONO % 12.9 % (3.0-9.0); NEUT # 4.1 10*3/uL (2.3-7.9); NEUT % 70.3 % (47.0-73.0); PLATELET COUNT AUTOMATED 169 10*3/uL (130-400); RED BLOOD COUNT 3.37 10*6/uL (4.10-5.10); RED CELL DISTRI WIDTH 14.2 % (0-14.5); WHITE BLOOD COUNT 5.8 10*3/uL (4.8-10.8)
[2021-03-22 08:00] VITALS: BP 156/64
[2021-03-22 19:55] VITALS: BP 153/53
[2021-03-23 08:00] VITALS: BP 141/59
[2021-03-23] MEDS ORDERED: VITAMIN D3125 MC1 PO (12:40)
[2021-03-23] MEDS ORDERED: AUGMENTIN 875875 MG PO (12:40)
[2021-03-23] MEDS ORDERED: AMBIEN5 MG PO ×2 (12:56→15:08)
[2021-03-23] MEDS ORDERED: INVEGA6 MG PO (12:57)
[2021-03-23] MEDS ORDERED: MIRTAZAPINE7.5 MG PO (13:01)
[2021-03-23] MEDS ORDERED: EXEL13.31 T (13:03)
== END 2021-03-23 14:28 | DRG 885 ==
LOC: ED 14:58 → EDHOLD 17:11 → 3N 19:22
PROVIDERS: Internal Medicine; Nurse Practitioner Women's Health; Physician Assistant; ADMIT Psychiatry & Neurology Psychiatry; ATTEND Psychiatry & Neurology Psychiatry
DX: F33.3 Major depressive disorder, recurrent, severe with psychotic symptoms (principal); N18.30 Chronic kidney disease, stage 3 unspecified; N17.0 Acute kidney failure with tubular necrosis; E11.65 Type 2 diabetes mellitus with hyperglycemia; E87.1 Hypo-osmolality and hyponatremia; E44.0 Moderate protein-calorie malnutrition; I12.9 Hypertensive chronic kidney disease with stage 1 through stage 4 chronic kidney disease, or unspecified chronic kidney disease; E11.22 Type 2 diabetes mellitus with diabetic chronic kidney disease; Z79.4 Long term (current) use of insulin; Z20.822 Contact with and (suspected) exposure to COVID-19; K59.00 Constipation, unspecified; D50.9 Iron deficiency anemia, unspecified; E83.52 Hypercalcemia; K76.0 Fatty (change of) liver, not elsewhere classified; F41.1 Generalized anxiety disorder; E11.41 Type 2 diabetes mellitus with diabetic mononeuropathy; R41.9 Unspecified symptoms and signs involving cognitive functions and awareness; K21.9 Gastro-esophageal reflux disease without esophagitis; G47.00 Insomnia, unspecified; Z90.49 Acquired absence of other specified parts of digestive tract; Z90.710 Acquired absence of both cervix and uterus; Z88.5 Allergy status to narcotic agent; Z88.1 Allergy status to other antibiotic agents; Z79.899 Other long term (current) drug therapy; Z83.3 Family history of diabetes mellitus; Z80.1 Family history of malignant neoplasm of trachea, bronchus and lung; Z83.1 Family history of other infectious and parasitic diseases

== ENCOUNTER 2021-05-10 23:55 | Inpatient (IN) | payer OTHER ==
[~2021-05-10] VITALS: Ht 157.4 cm; Wt 88.2 kg
[~2021-05-10 23:55] MED LIST changes: +AMBIEN5 MG PO; +AUGMENTIN 875875 MG PO; +EXEL13.31 T; +INVEGA6 MG PO; +MIRTAZAPINE7.5 MG PO; +VITAMIN D3125 MC1 PO
[2021-05-11 00:33] LABS: BASO # 0.1 10*3/uL (0.0-0.1); BASO % 0.3 % (0.0-1.0); EOS # 0.2 10*3/uL (0.0-0.4); EOS % 1.6 % (1.0-4.0); HEMATOCRIT 31.1 % (37.0-47.0); LYMPH # 1.7 10*3/uL (1.3-4.4); LYMPH % 11.9 % (27.0-41.0); MEAN CELL VOLUME 77.4 fl (81.0-99.0); MEAN CORPUSCULAR HGB 22.4 pg (27.0-31.0); MEAN CORPUSCULAR HGB CONC 28.9 g/dl (33.0-37.0); MEAN PLATELET VOLUME 9.8 fl (9.6-12.3); MONO # 1.4 10*3/uL (0.1-1.0); MONO % 9.7 % (3.0-9.0); NEUT # 10.8 10*3/uL (2.3-7.9); NEUT % 75.5 % (47.0-73.0); PLATELET COUNT AUTOMATED 265 10*3/uL (130-400); RED BLOOD COUNT 4.02 10*6/uL (4.10-5.10); WHITE BLOOD COUNT 14.3 10*3/uL (4.8-10.8)
[2021-05-11 00:44] LABS: ACT PARTIAL THROMBO TIME 25.1 SECONDS (20.0-32.1); INTERNATIONAL NORM RATIO 1.1 (2.0-3.5)
[2021-05-11 00:46] LABS: CREATININE 2.48 mg/dL (0.55-1.02); POTASSIUM 5.4 mmol/L (3.5-5.1); TOTAL PROTEIN 6.2 gm/dL (6.4-8.2)
[2021-05-11 03:52] VITALS: BP 101/47
[2021-05-11 04:14] VITALS: BP 102/40
[2021-05-11] MEDS ORDERED: K-PHOS #2 TABL1 EACH PO (05:12)
[2021-05-11] MEDS ORDERED: MILK OF MA400 MG/51 PO (05:14)
[2021-05-11] MEDS ORDERED: PAIN RELIEVER325 MG PO (05:17)
[2021-05-11 05:41] LABS: CREATININE 2.63 mg/dL (0.55-1.02); POTASSIUM 5.4 mmol/L (3.5-5.1); TOTAL PROTEIN 6.2 gm/dL (6.4-8.2)
[2021-05-11 06:24] LABS: ACT PARTIAL THROMBO TIME 26.2 SECONDS (20.0-32.1); INTERNATIONAL NORM RATIO 1.1 (2.0-3.5)
[2021-05-11 06:33] LABS: BASO % 0.2 % (0.0-1.0); EOS # 0.2 10*3/uL (0.0-0.4); EOS % 1.3 % (1.0-4.0); HEMATOCRIT 30.1 % (37.0-47.0); LYMPH # 1.2 10*3/uL (1.3-4.4); LYMPH % 9.8 % (27.0-41.0); MEAN CELL VOLUME 76.6 fl (81.0-99.0); MEAN CORPUSCULAR HGB 22.4 pg (27.0-31.0); MEAN CORPUSCULAR HGB CONC 29.2 g/dl (33.0-37.0); MEAN PLATELET VOLUME 10.2 fl (9.6-12.3); MONO # 1.3 10*3/uL (0.1-1.0); MONO % 10.3 % (3.0-9.0); NEUT # 9.7 10*3/uL (2.3-7.9); NEUT % 77.5 % (47.0-73.0); PLATELET COUNT AUTOMATED 255 10*3/uL (130-400); RED BLOOD COUNT 3.93 10*6/uL (4.10-5.10); RED CELL DISTRI WIDTH 16.1 % (0-14.5); WHITE BLOOD COUNT 12.6 10*3/uL (4.8-10.8)
[2021-05-11 12:00] VITALS: BP 118/34
[2021-05-11 12:22] LABS: BODY FLUID WBC 431 /uL
[2021-05-11 13:26] LABS: BF LYMPHOCYTES 88 %; BF MACROPHAGES 2 %; BF NEUTROPHILS 7 %
[2021-05-11 16:00] VITALS: BP 129/43
[2021-05-11 18:07] LABS: BILIRUBIN Negative (Negative); BLOOD Negative (Negative); CLARITY Clear (Clear); COLOR Yellow (Yellow); GLUCOSE Negative (Negative); KETONE Negative (Negative); LEUKO ESTERASE Trace (Negative); NITRITE Negative (Negative); SPECIFIC GRAVITY 1.015 (1.001-1.030)
[2021-05-11 18:12] LABS: URINE CHLORIDE, RANDOM < 10 mmol/L
[2021-05-11 18:15] LABS: URINE CREATININE RANDOM 89.7 mg/dL
[2021-05-11 18:28] LABS: BACTERIA 1+; HYALINE CAST 0-2
[2021-05-11 20:00] VITALS: BP 158/48
[2021-05-12] VITALS: BP 134/51
[2021-05-12 04:00] VITALS: BP 113/46
[2021-05-12 06:17] LABS: CREATININE 2.36 mg/dL (0.55-1.02); POTASSIUM 5.6 mmol/L (3.5-5.1); TOTAL PROTEIN 6.3 gm/dL (6.4-8.2)
[2021-05-12 06:21] LABS: THYROID STIM HORMONE (HS) 4.04 uIU/ml (0.358-4.75)
[2021-05-12 06:32] LABS: BASO % 0.2 % (0.0-1.0); EOS # 0.2 10*3/uL (0.0-0.4); EOS % 1.6 % (1.0-4.0); HEMATOCRIT 29.8 % (37.0-47.0); LYMPH # 0.9 10*3/uL (1.3-4.4); LYMPH % 9.2 % (27.0-41.0); MEAN CELL VOLUME 75.8 fl (81.0-99.0); MEAN CORPUSCULAR HGB 21.9 pg (27.0-31.0); MEAN CORPUSCULAR HGB CONC 28.9 g/dl (33.0-37.0); MEAN PLATELET VOLUME 10.1 fl (9.6-12.3); MONO # 0.9 10*3/uL (0.1-1.0); MONO % 9.4 % (3.0-9.0); NEUT # 7.3 10*3/uL (2.3-7.9); NEUT % 78.8 % (47.0-73.0); PLATELET COUNT AUTOMATED 210 10*3/uL (130-400); RED BLOOD COUNT 3.93 10*6/uL (4.10-5.10); RED CELL DISTRI WIDTH 16.1 % (0-14.5); WHITE BLOOD COUNT 9.2 10*3/uL (4.8-10.8)
[2021-05-12 08:00] VITALS: BP 122/47
[2021-05-12 08:08] LABS: HEP B CORE AB, IGM Negative (Negative); HEPATITIS B SURFACE AG Negative (Negative); HEPATITIS C VIRUS ANTIBODY 0.1 s/co (0.0-0.9)
[2021-05-12 12:00] VITALS: BP 98/54
[2021-05-12 15:07] LABS: ACID FAST SPEC PROCESSING Direct Inoculation (.)
[2021-05-12 16:00] VITALS: BP 133/49
[2021-05-12 20:00] VITALS: BP 115/41
[2021-05-13] VITALS: BP 129/50
[2021-05-13 06:11] LABS: BASO % 0.3 % (0.0-1.0); EOS # 0.2 10*3/uL (0.0-0.4); EOS % 1.4 % (1.0-4.0); HEMATOCRIT 29.6 % (37.0-47.0); MEAN CELL VOLUME 76.9 fl (81.0-99.0); MEAN CORPUSCULAR HGB 22.3 pg (27.0-31.0); MEAN CORPUSCULAR HGB CONC 29.1 g/dl (33.0-37.0); MEAN PLATELET VOLUME 10.2 fl (9.6-12.3); MONO # 1.2 10*3/uL (0.1-1.0); MONO % 10.8 % (3.0-9.0); NEUT # 8.8 10*3/uL (2.3-7.9); NEUT % 77.4 % (47.0-73.0); PLATELET COUNT AUTOMATED 220 10*3/uL (130-400); RED BLOOD COUNT 3.85 10*6/uL (4.10-5.10); RED CELL DISTRI WIDTH 16.2 % (0-14.5); WHITE BLOOD COUNT 11.4 10*3/uL (4.8-10.8)
[2021-05-13 06:31] LABS: POTASSIUM 5.9 mmol/L (3.5-5.1)
[2021-05-13 06:36] LABS: CREATININE 2.49 mg/dL (0.55-1.02); TOTAL PROTEIN 5.7 gm/dL (6.4-8.2)
[2021-05-13 08:00] VITALS: BP 123/50
[2021-05-13 12:00] VITALS: BP 112/50
[2021-05-13 15:04] LABS: CREATININE 2.57 mg/dL (0.55-1.02); POTASSIUM 5.4 mmol/L (3.5-5.1)
[2021-05-13 16:00] VITALS: BP 129/74
[2021-05-13 20:00] VITALS: BP 142/64
[2021-05-14] VITALS: BP 101/82
[2021-05-14 06:19] LABS: BASO % 0.3 % (0.0-1.0); EOS # 0.2 10*3/uL (0.0-0.4); EOS % 1.3 % (1.0-4.0); HEMATOCRIT 29.9 % (37.0-47.0); LYMPH # 0.9 10*3/uL (1.3-4.4); LYMPH % 7.1 % (27.0-41.0); MEAN CELL VOLUME 77.3 fl (81.0-99.0); MEAN CORPUSCULAR HGB 22.5 pg (27.0-31.0); MEAN CORPUSCULAR HGB CONC 29.1 g/dl (33.0-37.0); MEAN PLATELET VOLUME 10.6 fl (9.6-12.3); MONO % 8.6 % (3.0-9.0); NEUT # 9.8 10*3/uL (2.3-7.9); NEUT % 81.4 % (47.0-73.0); PLATELET COUNT AUTOMATED 219 10*3/uL (130-400); RED BLOOD COUNT 3.87 10*6/uL (4.10-5.10); RED CELL DISTRI WIDTH 16.2 % (0-14.5)
[2021-05-14 06:33] LABS: CREATININE 2.44 mg/dL (0.55-1.02); POTASSIUM 5.2 mmol/L (3.5-5.1); TOTAL PROTEIN 5.8 gm/dL (6.4-8.2)
[2021-05-14 08:00] VITALS: BP 111/52
[2021-05-14 12:04] VITALS: BP 100/50
[2021-05-14 16:00] VITALS: BP 99/64
[2021-05-14 20:00] VITALS: BP 108/58
[2021-05-14 23:50] VITALS: BP 113/50
[2021-05-15 06:05] LABS: CREATININE 2.25 mg/dL (0.55-1.02)
[2021-05-15 06:37] LABS: BASO % 0.3 % (0.0-1.0); EOS # 0.1 10*3/uL (0.0-0.4); EOS % 1.1 % (1.0-4.0); LYMPH % 8.4 % (27.0-41.0); MEAN CELL VOLUME 76.3 fl (81.0-99.0); MEAN CORPUSCULAR HGB 22.4 pg (27.0-31.0); MEAN CORPUSCULAR HGB CONC 29.3 g/dl (33.0-37.0); MEAN PLATELET VOLUME 10.7 fl (9.6-12.3); MONO % 8.1 % (3.0-9.0); NEUT # 9.5 10*3/uL (2.3-7.9); NEUT % 81.2 % (47.0-73.0); PLATELET COUNT AUTOMATED 228 10*3/uL (130-400); RED BLOOD COUNT 3.93 10*6/uL (4.10-5.10); RED CELL DISTRI WIDTH 16.2 % (0-14.5); WHITE BLOOD COUNT 11.7 10*3/uL (4.8-10.8)
[2021-05-15 08:00] VITALS: BP 113/53
[2021-05-15 12:00] VITALS: BP 127/53
[2021-05-15 12:06] LABS: GLOMERULAR BASEMENT AB 3 units (0-20)
[2021-05-15 15:07] LABS: FREE KAPPA LIGHT CHAINS 114.5 mg/L (3.3-19.4); FREE LAMBDA LIGHT CHAINS 41.4 mg/L (5.7-26.3); KAPPA/LAMBDA RATIO 2.77 (0.26-1.65)
[2021-05-15 16:00] VITALS: BP 118/49
[2021-05-15 17:16] VITALS: BP 129/54
[2021-05-15 20:00] VITALS: BP 135/46
[2021-05-16] VITALS: BP 96/64
[2021-05-16 06:11] LABS: BASO % 0.3 % (0.0-1.0); EOS # 0.1 10*3/uL (0.0-0.4); EOS % 1.1 % (1.0-4.0); LYMPH # 0.9 10*3/uL (1.3-4.4); LYMPH % 7.6 % (27.0-41.0); MEAN CELL VOLUME 78.1 fl (81.0-99.0); MEAN CORPUSCULAR HGB 22.7 pg (27.0-31.0); MEAN PLATELET VOLUME 10.3 fl (9.6-12.3); MONO # 0.9 10*3/uL (0.1-1.0); MONO % 7.5 % (3.0-9.0); NEUT # 9.3 10*3/uL (2.3-7.9); NEUT % 82.1 % (47.0-73.0); PLATELET COUNT AUTOMATED 234 10*3/uL (130-400); RED BLOOD COUNT 3.97 10*6/uL (4.10-5.10); WHITE BLOOD COUNT 11.3 10*3/uL (4.8-10.8)
[2021-05-16 06:24] LABS: CREATININE 2.43 mg/dL (0.55-1.02); POTASSIUM 4.8 mmol/L (3.5-5.1)
[2021-05-16 08:00] VITALS: BP 107/65
[2021-05-16 12:00] VITALS: BP 116/54
[2021-05-16 16:00] VITALS: BP 127/65
[2021-05-16 20:00] VITALS: BP 111/93; BP 112/78
[2021-05-17] VITALS: BP 112/58
[2021-05-17 06:30] LABS: CREATININE 2.5 mg/dL (0.55-1.02); POTASSIUM 5.1 mmol/L (3.5-5.1)
[2021-05-17 06:33] LABS: HEMATOCRIT 30.7 % (37.0-47.0); MEAN CELL VOLUME 77.5 fl (81.0-99.0); MEAN CORPUSCULAR HGB 22.7 pg (27.0-31.0); MEAN CORPUSCULAR HGB CONC 29.3 g/dl (33.0-37.0); MEAN PLATELET VOLUME 10.8 fl (9.6-12.3); PLATELET COUNT AUTOMATED 244 10*3/uL (130-400); RED BLOOD COUNT 3.96 10*6/uL (4.10-5.10); RED CELL DISTRI WIDTH 17.7 % (0-14.5); WHITE BLOOD COUNT 12.9 10*3/uL (4.8-10.8)
[2021-05-17 06:39] LABS: MANUAL DIFF REFLEX YES
[2021-05-17 07:05] LABS: ATYPICAL LYMPHS 2 % (0-0); TOTAL CELLS COUNTED 100 #CELLS
[2021-05-17 07:06] LABS: PLATELET SUFFICIENCY NORMAL (NORMAL)
[2021-05-17 07:07] LABS: MICROCYTOSIS SLIGHT; POLYCHROMASIA SLIGHT
[2021-05-17 08:00] VITALS: BP 114/70
[2021-05-17 12:00] VITALS: BP 119/52
[2021-05-17 16:00] VITALS: BP 114/42
[2021-05-17 20:00] VITALS: BP 112/41
[2021-05-18] VITALS: BP 118/93
[2021-05-18 06:05] LABS: POTASSIUM 4.9 mmol/L (3.5-5.1)
[2021-05-18 06:09] LABS: CREATININE 2.43 mg/dL (0.55-1.02); TOTAL PROTEIN 5.7 gm/dL (6.4-8.2)
[2021-05-18 06:35] LABS: HEMATOCRIT 30.3 % (37.0-47.0); MEAN CELL VOLUME 77.9 fl (81.0-99.0); MEAN CORPUSCULAR HGB 23.1 pg (27.0-31.0); MEAN CORPUSCULAR HGB CONC 29.7 g/dl (33.0-37.0); MEAN PLATELET VOLUME 10.2 fl (9.6-12.3); PLATELET COUNT AUTOMATED 217 10*3/uL (130-400); RED BLOOD COUNT 3.89 10*6/uL (4.10-5.10); RED CELL DISTRI WIDTH 18.2 % (0-14.5); WHITE BLOOD COUNT 13.4 10*3/uL (4.8-10.8)
[2021-05-18 06:43] LABS: MANUAL DIFF REFLEX YES
[2021-05-18 07:27] LABS: BURR CELLS FEW; MICROCYTOSIS SLIGHT; OVALOCYTES FEW; PLATELET SUFFICIENCY NORMAL (NORMAL); POLYCHROMASIA SLIGHT; ROULEAUX SLIGHT; TOTAL CELLS COUNTED 100 #CELLS; TOXIC GRANULATION SLIGHT
[2021-05-18 08:00] VITALS: BP 118/56
[2021-05-18 08:08] LABS: ALPHA-1-GLOBULIN 0.3 g/dL (0.0-0.4); ALPHA-2-GLOBULIN 0.9 g/dL (0.4-1.0); BETA GLOBULIN 0.9 g/dL (0.7-1.3); GAMMA GLOBULIN 0.8 g/dL (0.4-1.8); GLOBULIN, TOTAL 2.9 g/dL (2.2-3.9); M-SPIKE Comment: g/dL (Not Observed); TOTAL PROTEIN, SERUM 5.9 g/dL (6.0-8.5)
[2021-05-18 12:00] VITALS: BP 112/54
[2021-05-18 16:00] VITALS: BP 109/50
[2021-05-18 20:00] VITALS: BP 118/44
[2021-05-19] VITALS: BP 116/42
[2021-05-19 08:00] VITALS: BP 110/43
[2021-05-19] MEDS ORDERED: AMBIEN5 MG PO (11:04)
[2021-05-19] MEDS ORDERED: SLOW RELEASE I159 MG PO (11:04)
[2021-05-19 12:00] VITALS: BP 124/43
[2021-05-19] MEDS ORDERED: OXYCODONE HCL5 MG PO (12:19)
== END 2021-05-19 13:02 | DRG 853 ==
LOC: ED 23:55 → EDHOLD 05-11 02:40 → 5E 05-11 02:40
PROVIDERS: Emergency Medicine; Family Medicine; Hospitalist; Internal Medicine; Internal Medicine Nephrology; Registered Nurse; ADMIT Internal Medicine; ATTEND Internal Medicine
PROC: 0W9G3ZZ Drainage of Peritoneal Cavity, Percutaneous Approach (ICD-10-PCS; principal; 2021-05-11)
PROC: 0JB70ZZ Excision of Back Subcutaneous Tissue and Fascia, Open Approach (ICD-10-PCS; 2021-05-15)
PROC: 0W9G3ZZ Drainage of Peritoneal Cavity, Percutaneous Approach (ICD-10-PCS; 2021-05-17)
DX: A41.9 Sepsis, unspecified organism (principal); L89.153 Pressure ulcer of sacral region, stage 3; N17.0 Acute kidney failure with tubular necrosis; E43 Unspecified severe protein-calorie malnutrition; E87.1 Hypo-osmolality and hyponatremia; C22.0 Liver cell carcinoma; R18.8 Other ascites; E72.20 Disorder of urea cycle metabolism, unspecified; F33.9 Major depressive disorder, recurrent, unspecified; K74.60 Unspecified cirrhosis of liver; Z66 Do not resuscitate; I12.9 Hypertensive chronic kidney disease with stage 1 through stage 4 chronic kidney disease, or unspecified chronic kidney disease; E11.22 Type 2 diabetes mellitus with diabetic chronic kidney disease; E11.65 Type 2 diabetes mellitus with hyperglycemia; N18.30 Chronic kidney disease, stage 3 unspecified; Z79.4 Long term (current) use of insulin; Z20.822 Contact with and (suspected) exposure to COVID-19; Z68.38 Body mass index [BMI] 38.0-38.9, adult; Z51.5 Encounter for palliative care; D50.9 Iron deficiency anemia, unspecified; E11.42 Type 2 diabetes mellitus with diabetic polyneuropathy; F41.1 Generalized anxiety disorder; E66.9 Obesity, unspecified; F51.01 Primary insomnia; K21.9 Gastro-esophageal reflux disease without esophagitis; L89.152 Pressure ulcer of sacral region, stage 2; Z88.1 Allergy status to other antibiotic agents; Z88.5 Allergy status to narcotic agent; Z79.899 Other long term (current) drug therapy; Z90.710 Acquired absence of both cervix and uterus; Z90.49 Acquired absence of other specified parts of digestive tract; Z79.1 Long term (current) use of non-steroidal anti-inflammatories (NSAID); Z80.1 Family history of malignant neoplasm of trachea, bronchus and lung; Z83.3 Family history of diabetes mellitus

== ENCOUNTER 2021-05-21 05:30 | Inpatient (IN) | payer OTHER ==
[~2021-05-21] VITALS: Ht 157.5 cm; Wt 94.4 kg
[2021-05-21] VITALS (7 sets, daily range): BP systolic 72–113; BP diastolic 42–71
[~2021-05-21 05:30] MED LIST changes: +K-PHOS #2 TABL1 EACH PO; +MILK OF MA400 MG/51 PO; +OXYCODONE HCL5 MG PO; +PAIN RELIEVER325 MG PO; +SLOW RELEASE I159 MG PO
[2021-05-21 05:52] LABS: BASO % 0.2 % (0.0-1.0); EOS # 0.1 10*3/uL (0.0-0.4); HEMATOCRIT 33.6 % (37.0-47.0); LYMPH # 1.1 10*3/uL (1.3-4.4); LYMPH % 8.4 % (27.0-41.0); MEAN CELL VOLUME 78.7 fl (81.0-99.0); MEAN CORPUSCULAR HGB 23.7 pg (27.0-31.0); MEAN CORPUSCULAR HGB CONC 30.1 g/dl (33.0-37.0); MEAN PLATELET VOLUME 10.2 fl (9.6-12.3); MONO # 0.8 10*3/uL (0.1-1.0); MONO % 6.7 % (3.0-9.0); NEUT # 10.3 10*3/uL (2.3-7.9); NEUT % 81.8 % (47.0-73.0); PLATELET COUNT AUTOMATED 183 10*3/uL (130-400); RED BLOOD COUNT 4.27 10*6/uL (4.10-5.10); RED CELL DISTRI WIDTH 19.4 % (0-14.5); WHITE BLOOD COUNT 12.6 10*3/uL (4.8-10.8)
[2021-05-21 06:06] LABS: BILIRUBIN Negative (Negative); BLOOD Negative (Negative); CLARITY Cloudy (Clear); COLOR Yellow (Yellow); GLUCOSE Negative (Negative); KETONE Negative (Negative); LEUKO ESTERASE 2+ (Negative); NITRITE Negative (Negative); UROBILINOGEN 0.2 E.U./dl (0.0-1.0)
[2021-05-21 06:07] LABS: CREATININE 2.71 mg/dL (0.55-1.02); TOTAL PROTEIN 6.2 gm/dL (6.4-8.2)
[2021-05-21 06:15] LABS: ACT PARTIAL THROMBO TIME 29.1 SECONDS (20.0-32.1); INTERNATIONAL NORM RATIO 1.2 (2.0-3.5)
[2021-05-21 06:17] LABS: BACTERIA 3+; EPITHELIAL CELLS 31-40; HYALINE CAST TNTC; MUCOUS 1+; WBC 51-100 wbc/hpf (0-5)
[2021-05-22] VITALS: BP 112/45
[2021-05-22 05:59] LABS: BASO % 0.1 % (0.0-1.0); EOS # 0.1 10*3/uL (0.0-0.4); EOS % 0.9 % (1.0-4.0); HEMATOCRIT 34.4 % (37.0-47.0); LYMPH # 1.1 10*3/uL (1.3-4.4); MEAN CELL VOLUME 77.5 fl (81.0-99.0); MEAN CORPUSCULAR HGB 22.7 pg (27.0-31.0); MEAN CORPUSCULAR HGB CONC 29.4 g/dl (33.0-37.0); MEAN PLATELET VOLUME 10.6 fl (9.6-12.3); MONO % 7.1 % (3.0-9.0); NEUT # 11.3 10*3/uL (2.3-7.9); NEUT % 82.7 % (47.0-73.0); PLATELET COUNT AUTOMATED 204 10*3/uL (130-400); RED BLOOD COUNT 4.44 10*6/uL (4.10-5.10); RED CELL DISTRI WIDTH 19.9 % (0-14.5); WHITE BLOOD COUNT 13.6 10*3/uL (4.8-10.8)
[2021-05-22 06:15] LABS: CREATININE 3.28 mg/dL (0.55-1.02); POTASSIUM 5.4 mmol/L (3.5-5.1); TOTAL PROTEIN 6.2 gm/dL (6.4-8.2)
[2021-05-22 08:00] VITALS: BP 104/46
[2021-05-22 12:00] VITALS: BP 95/52
== END 2021-05-22 15:20 | disposition hospice, inpatient (51) | DRG 871 ==
LOC: ED 05:30 → EDHOLD 07:11 → 4E 07:11
PROVIDERS: Emergency Medicine; Registered Nurse; ADMIT Internal Medicine; ATTEND Internal Medicine
PROC: 0W9G3ZZ Drainage of Peritoneal Cavity, Percutaneous Approach (ICD-10-PCS; principal; 2021-05-22)
DX: A41.9 Sepsis, unspecified organism (principal); N17.0 Acute kidney failure with tubular necrosis; E43 Unspecified severe protein-calorie malnutrition; N39.0 Urinary tract infection, site not specified; E87.1 Hypo-osmolality and hyponatremia; R18.8 Other ascites; Z66 Do not resuscitate; K74.60 Unspecified cirrhosis of liver; I12.9 Hypertensive chronic kidney disease with stage 1 through stage 4 chronic kidney disease, or unspecified chronic kidney disease; E11.22 Type 2 diabetes mellitus with diabetic chronic kidney disease; E11.65 Type 2 diabetes mellitus with hyperglycemia; E87.5 Hyperkalemia; N18.30 Chronic kidney disease, stage 3 unspecified; Z20.822 Contact with and (suspected) exposure to COVID-19; F32.A Depression, unspecified; L89.150 Pressure ulcer of sacral region, unstageable; F41.1 Generalized anxiety disorder; E11.40 Type 2 diabetes mellitus with diabetic neuropathy, unspecified; K21.9 Gastro-esophageal reflux disease without esophagitis; D50.9 Iron deficiency anemia, unspecified; Z83.3 Family history of diabetes mellitus; Z88.5 Allergy status to narcotic agent; Z88.1 Allergy status to other antibiotic agents; Z79.4 Long term (current) use of insulin; Z68.38 Body mass index [BMI] 38.0-38.9, adult; Z80.1 Family history of malignant neoplasm of trachea, bronchus and lung; Z51.5 Encounter for palliative care; Z79.899 Other long term (current) drug therapy; Z90.49 Acquired absence of other specified parts of digestive tract; Z90.710 Acquired absence of both cervix and uterus; R54 Age-related physical debility; R07.89 Other chest pain

== ENCOUNTER 2021-05-22 15:23 | Inpatient (IN) | payer OTHER ==
[~2021-05-22] VITALS: Ht 157.5 cm; Wt 94.4 kg
[2021-05-22 15:36] VITALS: BP 104/46
[2021-05-22 16:00] VITALS: BP 113/48
[2021-05-23] VITALS: BP 99/34
[2021-05-23 08:00] VITALS: BP 90/40
[2021-05-23 12:00] VITALS: BP 103/37
[2021-05-23 16:00] VITALS: BP 107/92
[2021-05-23 20:00] VITALS: BP 82/30
[2021-05-24 08:00] VITALS: BP 93/47
[2021-05-24 16:00] VITALS: BP 49/27
[2021-05-24 20:00] VITALS: BP 37/21
== END 2021-05-25 00:33 | DRG 871 ==
LOC: 4E 15:23
PROVIDERS: ADMIT Internal Medicine; ATTEND Internal Medicine
DX: A41.9 Sepsis, unspecified organism (principal); N17.0 Acute kidney failure with tubular necrosis; E43 Unspecified severe protein-calorie malnutrition; N39.0 Urinary tract infection, site not specified; R18.8 Other ascites; K74.60 Unspecified cirrhosis of liver; Z66 Do not resuscitate; Z68.38 Body mass index [BMI] 38.0-38.9, adult; Z51.5 Encounter for palliative care